=== PATIENT | male | born 1950 | race Caucasian/White ===

== ENCOUNTER 2019-01-30 09:17 | Inpatient (IN) | payer MEDICARE ==
[~2019-01-30] VITALS: Ht 165.1 cm; Wt 82.6 kg
[2019-01-30] VITALS (12 sets, daily range): BP systolic 100–125; BP diastolic 70–80
--- OUTSIDE RECORDS SUMMARY | 2019-01-30 09:20 | XMS REPORT ---
Author Author [facility] Address Unknown Phone Unavailable Care Team Providers Care Home Administrator Name Role Phone Unavailable Unavailable Payers Payer Name Policy Type Policy Number Effective Date Expiration Date Problems This patient has no known problems. Allergies, Adverse Reactions, Alerts Allergy Name Allergy Type Status Severity Reaction(s) Onset Date Inactive Date Treating Clinician Comments cortisone DA Active AL 2018-10-18 00:00:00 latex DA Active AL 2018-10-18 00:00:00 cortisone DA Active AL 2013-03-22 00:00:00 latex DA Active AL 2013-03-22 00:00:00 Medications This patient has no known medications. Encounters Start Date/Time End Date/Time Encounter Type Admission Type Attending Clinicians Care Facility Care Department Encounter ID 2018-12-13 10:48:48 Outpatient [facility] [id number] 2018-12-19 05:22:00 2018-12-19 05:22:00 Outpatient [facility] CAR [id number] 2018-12-01 14:04:00 2018-12-01 14:04:00 Outpatient [facility] CAR [id number] Results Test Description Test Time Test Comments Text Results Atomic Results Result Comments - DUP VEIN UNI/LTD 2018-10-24 10:41:00 Name: CHIQUIS JOLLY [facility] : 1950 Age/S: 68 / M [address] [place] [address] Unit #: [id number] Loc: [place] [address] Phys: Jersey Rogersvicky DO Acct: [id number] Dis Date: Status: ADM IN PHONE #: [phone] Exam Date: 10/24/2018 1013 FAX #: [phone] Reason: LEG PAIN AND NUMBNESS EXAMS: CPT CODE: [id number] DUP VEIN UNI/LTD [id number] EXAM: US LEFT LOWER EXTREMITY VENOUS DOPPLER DATE: 10/24/2018 3:00 PM : 1950; Age: 68 years y/o Male INDICATION: LEG PAIN AND NUMBNESS ADDITIONAL INFORMATION: None. COMPARISON: None. TECHNIQUE: Multiplanar grayscale, color Doppler and spectral Doppler ultrasound of the left lower extremity veins. FINDINGS: Left lower extremity: The common femoral vein, femoral vein, popliteal vein and visualized posterior tibial/calf veins are patent. There is no echogenic debris to suggest deep venous thrombosis. Incidental thick-walled popliteal vein is seen. Rouleaux flow is incidentally noted. IMPRESSION: No deep venous thrombosis (DVT). Incidental thick-walled popliteal vein is seen. Rouleaux flow is incidentally noted. SL: [id number] at 1041 Reported and signed by: Doris Munguia D.O. CC: Pieter Rogers DO; Swapnil Espinal MD Technologist: Gunjan Michelle RDMS(Fanny)(BR) Trnscb Date/Time: 10/24/2018 (1041) [email or web address] Orig Print D/T: S: 10/24/2018 (1046) Probe: PAGE 1 Signed Report BASIC METABOLIC PANEL 2018-10-23 07:31:00 SODIUM (test code=NA) 137 mEq/L 134-147 POTASSIUM (test code=K) 3.9 mEq/L 3.4-5.0 CHLORIDE (test code=CL) 102 mEq/L 100-108 CARBON DIOXIDE (test code=CO2) 27 mEq/L 21-33 ANION GAP (test code=GAP) 12 0-20 GLUCOSE (test code=GLU) 104 mg/dL 70-110 BLOOD UREA NITROGEN (test code=BUN) 16 mg/dL 7-18 GLOMERULAR FILTRATION RATE (test code=GFR) 66.6 80-90 Units of measure=ml/min/1.73 m2 CREATININE (test code=CREAT) 1.1 mg/dL 0.6-1.3 CALCIUM (test code=CA) 8.6 mg/dL 8.0-10.5 [id number] 07:31:00* Test Item Value Reference Range Comments PHOSPHOROUS (test code=PHOS) 3.8 mg/dL 2.5-4.9 [id number] 07:31:00* Test Item Value Reference Range Comments MAGNESIUM (test code=MAG) 2.50 mg/dL 1.8-2.4 CBC W/AUTO [id number] 07:11:00* Test Item Value Reference Range Comments WHITE BLOOD CELL (test code=WBC) 9.35 x10 3/uL 4.5-11.0 RED BLOOD CELL (test code=RBC) 3.95 x10 6/uL 4.00-5.60 HEMOGLOBIN (test code=HGB) 11.6 g/dL 12.5-16.9 HEMATOCRIT (test code=HCT) 34.8 % 37.5-50.7 MEAN CELL VOLUME (test code=MCV) 88.1 fL 81.0-99.0 MEAN CELL HGB (test code=MCH) 29.4 pg 27.0-33.0 MEAN CELL HGB CONCETRATION (test code=MCHC) 33.3 g/dL 33.0-37.0 RED CELL DISTRIBUTION WIDTH CV (test code=RDW) 13.6 % 11.5-14.5 RED CELL DISTRIBUTION WIDTH SD (test code=RDW-SD) 44.0 fL 37.0-54.0 PLATELET COUNT (test code=PLT) 304 x10 3/uL 150-400 MEAN PLATELET VOLUME (test code=MPV) 8.8 fL 7.0-9.0 NEUTROPHIL % (test code=NT%) 66.2 % 56.0-77.0 IMMATURE GRANULOCYTE % (test code=IG%) 1.0 % 0.0-2.0 LYMPHOCYTE % (test code=LY%) 17.6 % 14.0-32.0 MONOCYTE % (test code=MO%) 9.7 % 4.8-9.0 EOSINOPHIL % (test code=EO%) 5.1 % 0.3-3.7 BASOPHIL % (test code=BA%) 0.4 % 0.0-2.0 NUCLEATED RBC % (test code=NRBC%) 0.0 % 0-0 NEUTROPHIL # (test code=NT#) 6.18 x10 3/uL 2.0-7.6 IMMATURE GRANULOCYTE # (test code=IG#) 0.09 x10 3/uL 0.00-0.03 LYMPHOCYTE # (test code=LY#) 1.65 x10 3/uL 1.0-3.8 MONOCYTE # (test code=MO#) 0.91 x10 3/uL 0.1-0.8 EOSINOPHIL # (test code=EO#) 0.48 x10 3/uL 0.0-0.2 BASOPHIL # (test code=BA#) 0.04 x10 3/uL 0.0-0.2 NUCLEATED RBC # (test code=NRBC#) 0.00 x10 3/uL 0.0-0.1 MANUAL DIFF REQUIRED (test code=MDIFF) NO BASIC METABOLIC [id number] 10:56:00* Test Item Value Reference Range Comments SODIUM (test code=NA) 137 mEq/L 134-147 POTASSIUM (test code=K) 4.2 mEq/L 3.4-5.0 CHLORIDE (test code=CL) 103 mEq/L 100-108 CARBON DIOXIDE (test code=CO2) 29 mEq/L 21-33 ANION GAP (test code=GAP) 9 0-20 GLUCOSE (test code=GLU) 113 mg/dL 70-110 BLOOD UREA NITROGEN (test code=BUN) 14 mg/dL 7-18 GLOMERULAR FILTRATION RATE (test code=GFR) 60.2 80-90 Units of measure=ml/min/1.73 m2 CREATININE (test code=CREAT) 1.2 mg/dL 0.6-1.3 CALCIUM (test code=CA) 8.7 mg/dL 8.0-10.5 BASIC METABOLIC [id number] 04:30:00* Test Item Value Reference Range Comments SODIUM (test code=NA) 135 mEq/L 134-147 POTASSIUM (test code=K) 3.9 mEq/L 3.4-5.0 CHLORIDE (test code=CL) 100 mEq/L 100-108 CARBON DIOXIDE (test code=CO2) 31 mEq/L 21-33 ANION GAP (test code=GAP) 8 0-20 GLUCOSE (test code=GLU) 132 mg/dL 70-110 BLOOD UREA NITROGEN (test code=BUN) 15 mg/dL 7-18 GLOMERULAR FILTRATION RATE (test code=GFR) 50.4 80-90 Units of measure=ml/min/1.73 m2 CREATININE (test code=CREAT) 1.4 mg/dL 0.6-1.3 CALCIUM (test code=CA) 8.2 mg/dL 8.0-10.5 CBC W/AUTO [id number] 04:13:00* Test Item Value Reference Range Comments WHITE BLOOD CELL (test code=WBC) 11.23 x10 3/uL 4.5-11.0 RED BLOOD CELL (test code=RBC) 4.00 x10 6/uL 4.00-5.60 HEMOGLOBIN (test code=HGB) 11.8 g/dL 12.5-16.9 HEMATOCRIT (test code=HCT) 35.1 % 37.5-50.7 MEAN CELL VOLUME (test code=MCV) 87.8 fL 81.0-99.0 MEAN CELL HGB (test code=MCH) 29.5 pg 27.0-33.0 MEAN CELL HGB CONCETRATION (test code=MCHC) 33.6 g/dL 33.0-37.0 RED CELL DISTRIBUTION WIDTH CV (test code=RDW) 13.9 % 11.5-14.5 RED CELL DISTRIBUTION WIDTH SD (test code=RDW-SD) 44.8 fL 37.0-54.0 PLATELET COUNT (test code=PLT) 194 x10 3/uL 150-400 MEAN PLATELET VOLUME (test code=MPV) 8.6 fL 7.0-9.0 NEUTROPHIL % (test code=NT%) 71.6 % 56.0-77.0 IMMATURE GRANULOCYTE % (test code=IG%) 0.5 % 0.0-2.0 LYMPHOCYTE % (test code=LY%) 15.9 % 14.0-32.0 MONOCYTE % (test code=MO%) 9.6 % 4.8-9.0 EOSINOPHIL % (test code=EO%) 2.0 % 0.3-3.7 BASOPHIL % (test code=BA%) 0.4 % 0.0-2.0 NUCLEATED RBC % (test code=NRBC%) 0.0 % 0-0 NEUTROPHIL # (test code=NT#) 8.05 x10 3/uL 2.0-7.6 IMMATURE GRANULOCYTE # (test code=IG#) 0.06 x10 3/uL 0.00-0.03 LYMPHOCYTE # (test code=LY#) 1.78 x10 3/uL 1.0-3.8 MONOCYTE # (test code=MO#) 1.08 x10 3/uL 0.1-0.8 EOSINOPHIL # (test code=EO#) 0.22 x10 3/uL 0.0-0.2 BASOPHIL # (test code=BA#) 0.04 x10 3/uL 0.0-0.2 NUCLEATED RBC # (test code=NRBC#) 0.00 x10 3/uL 0.0-0.1 MANUAL DIFF REQUIRED (test code=MDIFF) NO [id number] 01:29:00* Test Item Value Reference Range Comments FIBRINOGEN (test code=FIB) 452 MG/DL 160-450 Excess administration of anticoagulants and/or FibrinDegradation Products may affect Fibrinogen value. COMMENTS: 2 hrs Post Procedure, then q6 hrs X 48 hrs. Call if less gary n 100.[id number] 21:01:00* Test Item Value Reference Range Comments FIBRINOGEN (test code=FIB) 401 MG/DL 160-450 Excess administration of anticoagulants and/or FibrinDegradation Products may affect Fibrinogen value. COMMENTS: 2 hrs Post Procedure, then q6 hrs X 48 hrs. Call if less gary n 100.BASIC METABOLIC [id number] 05:54:00* Test Item Value Reference Range Comments SODIUM (test code=NA) 136 mEq/L 134-147 POTASSIUM (test code=K) 4.1 mEq/L 3.4-5.0 CHLORIDE (test code=CL) 101 mEq/L 100-108 CARBON DIOXIDE (test code=CO2) 30 mEq/L 21-33 ANION GAP (test code=GAP) 9 0-20 GLUCOSE (test code=GLU) 108 mg/dL 70-110 BLOOD UREA NITROGEN (test code=BUN) 10 mg/dL 7-18 GLOMERULAR FILTRATION RATE (test code=GFR) 66.6 80-90 Units of measure=ml/min/1.73 m2 CREATININE (test code=CREAT) 1.1 mg/dL 0.6-1.3 CALCIUM (test code=CA) 8.5 mg/dL 8.0-10.5 CBC W/AUTO [id number] 05:46:00* Test Item Value Reference Range Comments WHITE BLOOD CELL (test code=WBC) 9.72 x10 3/uL 4.5-11.0 RED BLOOD CELL (test code=RBC) 4.43 x10 6/uL 4.00-5.60 HEMOGLOBIN (test code=HGB) 13.1 g/dL 12.5-16.9 HEMATOCRIT (test code=HCT) 38.8 % 37.5-50.7 MEAN CELL VOLUME (test code=MCV) 87.6 fL 81.0-99.0 MEAN CELL HGB (test code=MCH) 29.6 pg 27.0-33.0 MEAN CELL HGB CONCETRATION (test code=MCHC) 33.8 g/dL 33.0-37.0 RED CELL DISTRIBUTION WIDTH CV (test code=RDW) 13.6 % 11.5-14.5 RED CELL DISTRIBUTION WIDTH SD (test code=RDW-SD) 44.1 fL 37.0-54.0 PLATELET COUNT (test code=PLT) 205 x10 3/uL 150-400 MEAN PLATELET VOLUME (test code=MPV) 8.7 fL 7.0-9.0 NEUTROPHIL % (test code=NT%) 66.9 % 56.0-77.0 IMMATURE GRANULOCYTE % (test code=IG%) 0.6 % 0.0-2.0 LYMPHOCYTE % (test code=LY%) 21.3 % 14.0-32.0 MONOCYTE % (test code=MO%) 8.1 % 4.8-9.0 EOSINOPHIL % (test code=EO%) 2.8 % 0.3-3.7 BASOPHIL % (test code=BA%) 0.3 % 0.0-2.0 NUCLEATED RBC % (test code=NRBC%) 0.0 % 0-0 NEUTROPHIL # (test code=NT#) 6.50 x10 3/uL 2.0-7.6 IMMATURE GRANULOCYTE # (test code=IG#) 0.06 x10 3/uL 0.00-0.03 LYMPHOCYTE # (test code=LY#) 2.07 x10 3/uL 1.0-3.8 MONOCYTE # (test code=MO#) 0.79 x10 3/uL 0.1-0.8 EOSINOPHIL # (test code=EO#) 0.27 x10 3/uL 0.0-0.2 BASOPHIL # (test code=BA#) 0.03 x10 3/uL 0.0-0.2 NUCLEATED RBC # (test code=NRBC#) 0.00 x10 3/uL 0.0-0.1 MANUAL DIFF REQUIRED (test code=MDIFF) NO [id number] 05:46:00* Test Item Value Reference Range Comments FIBRINOGEN (test code=FIB) 449 MG/DL 160-450 Excess administration of anticoagulants and/or FibrinDegradation Products may affect Fibrinogen value. COMMENTS: 2 hrs Post Procedure, then q6 hrs X 48 hrs. Call if less gary n 100.[id number] 00:57:00* Test Item Value Reference Range Comments FIBRINOGEN (test code=FIB) 440 MG/DL 160-450 Excess administration of anticoagulants and/or FibrinDegradation Products may affect Fibrinogen value. COMMENTS: 2 hrs Post Procedure, then q6 hrs X 48 hrs. Call if less gary n 100.THROMBOPLASTIN TIME [id number] 20:30:00* Test Item Value Reference Range Comments THROMBOPLASTIN TIME PARTIAL (test code=PTT) 39.8 Seconds 25.0-39.5 Therapeutic Range: 61.8-83.8 Sec Effective 08/09/2013 [id number] 20:30:00* Test Item Value Reference Range Comments FIBRINOGEN (test code=FIB) 423 MG/DL 160-450 Excess administration of anticoagulants and/or FibrinDegradation Products may affect Fibrinogen value. [id number] 12:46:00* Test Item Value Reference Range Comments FIBRINOGEN (test code=FIB) 338 MG/DL 160-450 Excess administration of anticoagulants and/or FibrinDegradation Products may affect Fibrinogen value. COMMENTS: 2 hrs Post Procedure, then q6 hrs X 48 hrs. Call if less gary n 100.PROTHROMBIN [id number] 05:34:00* Test Item Value Reference Range Comments PROTHROMBIN TIME PATIENT (test code=PTP) 12.3 SECONDS 9.3-12.9 INTERNATIONAL NORMAL RATIO (test code=INR) 1.1 0.8-1.2 TARGET INR BY INDICATION Indication INR1. Prophylaxis of venous thrombosis 2.0 - 3.0 (orthopedic surgery), Prophylaxis of venous thrombosis (other than high-risk surgery), Treatment of Deep Vein Thrombosis/Pulmonary Embolism, Prevention of systemic embolism - Tissue heart valves, Acute Myocardial Infarction (to prevent systemic embolism), Valvular heart disease, Atrial Fibrillation, Bileaflet mechanical valve in aortic position.2. Mechanical prosthetic valves (high risk), 2.5 - 3.5 Presence of Lupus Anticoagulant or Antiphospholipid Antibodies, Prevention of systemic embolism - Acute Myocardial Infarction (to prevent recurrent infarct). THROMBOPLASTIN TIME [id number] 05:34:00* Test Item Value Reference Range Comments THROMBOPLASTIN TIME PARTIAL (test code=PTT) 39.5 Seconds 25.0-39.5 Therapeutic Range: 61.8-83.8 Sec Effective 08/09/2013 BASIC METABOLIC [id number] 05:26:00* Test Item Value Reference Range Comments SODIUM (test code=NA) 139 mEq/L 134-147 POTASSIUM (test code=K) 3.9 mEq/L 3.4-5.0 CHLORIDE (test code=CL) 106 mEq/L 100-108 CARBON DIOXIDE (test code=CO2) 29 mEq/L 21-33 ANION GAP (test code=GAP) 8 0-20 GLUCOSE (test code=GLU) 121 mg/dL 70-110 BLOOD UREA NITROGEN (test code=BUN) 14 mg/dL 7-18 GLOMERULAR FILTRATION RATE (test code=GFR) 66.6 80-90 Units of measure=ml/min/1.73 m2 CREATININE (test code=CREAT) 1.1 mg/dL 0.6-1.3 CALCIUM (test code=CA) 8.3 mg/dL 8.0-10.5 CBC W/AUTO [id number] 05:10:00* Test Item Value Reference Range Comments WHITE BLOOD CELL (test code=WBC) 13.73 x10 3/uL 4.5-11.0 RED BLOOD CELL (test code=RBC) 4.59 x10 6/uL 4.00-5.60 HEMOGLOBIN (test code=HGB) 13.4 g/dL 12.5-16.9 HEMATOCRIT (test code=HCT) 39.0 % 37.5-50.7 MEAN CELL VOLUME (test code=MCV) 85.0 fL 81.0-99.0 MEAN CELL HGB (test code=MCH) 29.2 pg 27.0-33.0 MEAN CELL HGB CONCETRATION (test code=MCHC) 34.4 g/dL 33.0-37.0 RED CELL DISTRIBUTION WIDTH CV (test code=RDW) 13.5 % 11.5-14.5 RED CELL DISTRIBUTION WIDTH SD (test code=RDW-SD) 41.8 fL 37.0-54.0 PLATELET COUNT (test code=PLT) 228 x10 3/uL 150-400 MEAN PLATELET VOLUME (test code=MPV) 8.7 fL 7.0-9.0 NEUTROPHIL % (test code=NT%) 77.4 % 56.0-77.0 IMMATURE GRANULOCYTE % (test code=IG%) 0.7 % 0.0-2.0 LYMPHOCYTE % (test code=LY%) 13.4 % 14.0-32.0 MONOCYTE % (test code=MO%) 6.3 % 4.8-9.0 EOSINOPHIL % (test code=EO%) 1.9 % 0.3-3.7 BASOPHIL % (test code=BA%) 0.3 % 0.0-2.0 NUCLEATED RBC % (test code=NRBC%) 0.0 % 0-0 NEUTROPHIL # (test code=NT#) 10.62 x10 3/uL 2.0-7.6 IMMATURE GRANULOCYTE # (test code=IG#) 0.10 x10 3/uL 0.00-0.03 LYMPHOCYTE # (test code=LY#) 1.84 x10 3/uL 1.0-3.8 MONOCYTE # (test code=MO#) 0.87 x10 3/uL 0.1-0.8 EOSINOPHIL # (test code=EO#) 0.26 x10 3/uL 0.0-0.2 BASOPHIL # (test code=BA#) 0.04 x10 3/uL 0.0-0.2 NUCLEATED RBC # (test code=NRBC#) 0.00 x10 3/uL 0.0-0.1 MANUAL DIFF REQUIRED (test code=MDIFF) NO [id number] 02:09:00* Test Item Value Reference Range Comments FIBRINOGEN (test code=FIB) 343 MG/DL 160-450 Excess administration of anticoagulants and/or FibrinDegradation Products may affect Fibrinogen value. COMMENTS: 2 hrs Post Procedure, then q6 hrs X 48 hrs. Call if less gary n 100.COMPREHENSIVE METABOLIC [id number] 21:17:00* Test Item Value Reference Range Comments SODIUM (test code=NA) 137 mEq/L 134-147 POTASSIUM (test code=K) 3.7 mEq/L 3.4-5.0 CHLORIDE (test code=CL) 103 mEq/L 100-108 CARBON DIOXIDE (test code=CO2) 30 mEq/L 21-33 ANION GAP (test code=GAP) 8 0-20 GLUCOSE (test code=GLU) 98 mg/dL 70-110 BLOOD UREA NITROGEN (test code=BUN) 14 mg/dL 7-18 GLOMERULAR FILTRATION RATE (test code=GFR) 60.2 80-90 Units of measure=ml/min/1.73 m2 CREATININE (test code=CREAT) 1.2 mg/dL 0.6-1.3 TOTAL PROTEIN (test code=PROT) 7.9 g/dL 6.4-8.2 ALBUMIN (test code=ALB) 4.30 g/dL 3.4-5.0 CALCIUM (test code=CA) 9.4 mg/dL 8.0-10.5 BILIRUBIN TOTAL (test code=BILT) 0.40 mg/dL 0.0-1.0 SGOT/AST (test code=AST) 22 IUnit/L 15-37 SGPT/ALT (test code=ALT) 34 IUnit/L 15-65 ALKALINE PHOSPHATASE TOTAL (test code=ALKP) 102 IUnit/L 20-125 COMPREHENSIVE METABOLIC [id number] 21:15:00* Test Item Value Reference Range Comments SODIUM (test code=NA) 137 mEq/L 134-147 POTASSIUM (test code=K) 3.7 mEq/L 3.4-5.0 CHLORIDE (test code=CL) 103 mEq/L 100-108 CARBON DIOXIDE (test code=CO2) 30 mEq/L 21-33 ANION GAP (test code=GAP) 8 0-20 GLUCOSE (test code=GLU) 98 mg/dL 70-110 BLOOD UREA NITROGEN (test code=BUN) 14 mg/dL 7-18 GLOMERULAR FILTRATION RATE (test code=GFR) 60.2 80-90 Units of measure=ml/min/1.73 m2 CREATININE (test code=CREAT) 1.2 mg/dL 0.6-1.3 TOTAL PROTEIN (test code=PROT) g/dL 6.4-8.2 ALBUMIN (test code=ALB) 4.30 g/dL 3.4-5.0 CALCIUM (test code=CA) 9.4 mg/dL 8.0-10.5 BILIRUBIN TOTAL (test code=BILT) mg/dL 0.0-1.0 SGOT/AST (test code=AST) 22 IUnit/L 15-37 SGPT/ALT (test code=ALT) 34 IUnit/L 15-65 ALKALINE PHOSPHATASE TOTAL (test code=ALKP) IUnit/L 20-125 PROTHROMBIN [id number] 21:13:00* Test Item Value Reference Range Comments PROTHROMBIN TIME PATIENT (test code=PTP) 11.7 SECONDS 9.3-12.9 INTERNATIONAL NORMAL RATIO (test code=INR) 1.0 0.8-1.2 TARGET INR BY INDICATION Indication INR1. Prophylaxis of venous thrombosis 2.0 - 3.0 (orthopedic surgery), Prophylaxis of venous thrombosis (other than high-risk surgery), Treatment of Deep Vein Thrombosis/Pulmonary Embolism, Prevention of systemic embolism - Tissue heart valves, Acute Myocardial Infarction (to prevent systemic embolism), Valvular heart disease, Atrial Fibrillation, Bileaflet mechanical valve in aortic position.2. Mechanical prosthetic valves (high risk), 2.5 - 3.5 Presence of Lupus Anticoagulant or Antiphospholipid Antibodies, Prevention of systemic embolism - Acute Myocardial Infarction (to prevent recurrent infarct). THROMBOPLASTIN TIME [id number] 21:13:00* Test Item Value Reference Range Comments THROMBOPLASTIN TIME PARTIAL (test code=PTT) 29.0 Seconds 25.0-39.5 Therapeutic Range: 61.8-83.8 Sec Effective 08/09/2013 CBC W/AUTO [id number] 21:01:00* Test Item Value Reference Range Comments WHITE BLOOD CELL (test code=WBC) 11.75 x10 3/uL 4.5-11.0 RED BLOOD CELL (test code=RBC) 5.14 x10 6/uL 4.00-5.60 HEMOGLOBIN (test code=HGB) 15.0 g/dL 12.5-16.9 HEMATOCRIT (test code=HCT) 44.0 % 37.5-50.7 MEAN CELL VOLUME (test code=MCV) 85.6 fL 81.0-99.0 MEAN CELL HGB (test code=MCH) 29.2 pg 27.0-33.0 MEAN CELL HGB CONCETRATION (test code=MCHC) 34.1 g/dL 33.0-37.0 RED CELL DISTRIBUTION WIDTH CV (test code=RDW) 13.4 % 11.5-14.5 RED CELL DISTRIBUTION WIDTH SD (test code=RDW-SD) 42.4 fL 37.0-54.0 PLATELET COUNT (test code=PLT) 284 x10 3/uL 150-400 MEAN PLATELET VOLUME (test code=MPV) 8.4 fL 7.0-9.0 NEUTROPHIL % (test code=NT%) 62.6 % 56.0-77.0 IMMATURE GRANULOCYTE % (test code=IG%) 0.9 % 0.0-2.0 LYMPHOCYTE % (test code=LY%) 26.4 % 14.0-32.0 MONOCYTE % (test code=MO%) 6.4 % 4.8-9.0 EOSINOPHIL % (test code=EO%) 3.4 % 0.3-3.7 BASOPHIL % (test code=BA%) 0.3 % 0.0-2.0 NUCLEATED RBC % (test code=NRBC%) 0.0 % 0-0 NEUTROPHIL # (test code=NT#) 7.35 x10 3/uL 2.0-7.6 IMMATURE GRANULOCYTE # (test code=IG#) 0.11 x10 3/uL 0.00-0.03 LYMPHOCYTE # (test code=LY#) 3.10 x10 3/uL 1.0-3.8 MONOCYTE # (test code=MO#) 0.75 x10 3/uL 0.1-0.8 EOSINOPHIL # (test code=EO#) 0.40 x10 3/uL 0.0-0.2 BASOPHIL # (test code=BA#) 0.04 x10 3/uL 0.0-0.2 NUCLEATED RBC # (test code=NRBC#) 0.00 x10 3/uL 0.0-0.1 MANUAL DIFF REQUIRED (test code=MDIFF) NO - DOMITILA ESQUIVEL [id number] 19:00:00 Name: CHIQUIS JOLLY [facility] : 1950 Age/S: 68 / M [address] [place] [address] Unit #: [id number] Loc: [place] [address] Phys: Swapnil Espinal MD Acct: [id number] Dis Date: Status: REG CLI PHONE #: [phone] Exam Date: 10/17/2018 1824 FAX #: [phone] Reason: LLE PAIN AND EDEMA EXAMS: CPT CODE: [id number] DUP VEIN UNI/LTD [id number] EXAM: US LEFT LOWER EXTREMITY VENOUS DOPPLER DATE: 10/17/2018 5:02 PM : 1950; Age: 68 years y/o Male INDICATION: LLE PAIN AND EDEMA ADDITIONAL INFORMATION: None. COMPARISON: None. TECHNIQUE: Multiplanar grayscale, color Doppler and spectral Doppler ultrasound of the left lower extremity veins. FINDINGS: Left lower extremity: The common femoral vein, femoral vein, popliteal vein and visualized posterior tibial/calf veins are patent. There is no echogenic debris to suggest deep venous thrombosis. 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 This aneurysm is primarily clotted. Echogenic heterogeneous clot is noted involving the mid and distal popliteal artery with no flow. Diminished flow is noted in the distal left posterior tibial artery. No flow is noted in the proximal posterior tibial artery. Diminished flow is noted in the left dorsalis pedis artery. IMPRESSION: No deep venous thrombosis (DVT). 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 This aneurysm is primarily clotted. Echogenic heterogeneous clot is noted involving the mid and distal popliteal artery with no flow. No flow is noted in the proximal posterior tibial artery. Diminished flow is noted in the distal left posterior tibial artery. Diminished flow is noted in the left dorsalis pedis artery. SL: [id number] Significant findings were communicated to Lashon Oden PH-C on 10/17/2018 6:47 PM. PAGE 1 Signed Report (CONTINUED) Name: CHIQUIS JOLLY [facility] [place] : 1950 Age/S: 68 / M [address] [place] [address] Bl Unit #: [id number] Loc: [facility] [address] Phys: Swapnil Espinal MD Acct: [id number] Dis Date: Status: REG CLI PHONE #: [phone] Exam Date: 10/17/2018 1824 FAX #: [phone] Reason: LLE PAIN AND EDEMA EXAMS: CPT CODE: [id number] DUP VEIN UNI/LTD [id number] <Continued> FOR INTERNAL CODING PURPOSES ONLY RESULT CODE: CVR at 1900 Reported and signed by: Doris Munguia D.O. CC: Swapnil Espinal MD Technologist: Nicki Cevallos RDMS(AB)(OB); ... Trnscb Date/Time: 10/17/2018 (1899) [id number] Orig Print D/T: S: 10/17/2018 (1902) Probe: PAGE 2 Signed Report
[2019-01-30] MEDS ORDERED: HEPARIN 25,000 UNIT 1,300 UNIT in DEXTROSE 5% 250ML 250 ML IV SCH (10:00)
[2019-01-30] MEDS ORDERED: HEPARIN SOD (PORCINE) 5,000 UNIT/ML VIAL IV ONE (10:00)
[2019-01-30] MEDS ORDERED: MORPHINE SULFATE 2 MG/ML SYR 1ML IV PRN (10:15)
[2019-01-30] MEDS ORDERED: ONDANSETRON HCL INJ 2MG/ML 2ML 2 MG/ML VIAL IV PRN ×2 (10:15→13:45)
[2019-01-30] MEDS ORDERED: MORPHINE SULFATE INJ 4 MG/ML INJ 1ML IV PRN (10:30)
--- NOTE | 2019-01-30 10:35 | Diagnostic Imaging Report ---
EXAMINATION: CHEST SINGLE (PORTABLE) INDICATION: Ischemia. COMPARISON: None FINDINGS: TUBES and LINES: EKG leads overlie the chest. LUNGS: The lung volumes are normal. No focal consolidation or pulmonary edema. PLEURA: No pleural effusion or pneumothorax. HEART AND MEDIASTINUM: The cardiomediastinal silhouette is normal in size and contour. BONES AND SOFT TISSUES: No acute fracture or dislocation. UPPER ABDOMEN: No free air under the diaphragm. IMPRESSION: No focal pneumonia or pulmonary edema. Signed by: Fredi Cerna MD on 01/30/2019 10:31 AM
[2019-01-30 10:59] LABS: BASOPHILS % 0.3 % (0.0-1.0); EOSINOPHILS # (AUTO) 0.3 (0.0-0.4); EOSINOPHILS % 3.2 % (0.0-6.0); HEMATOCRIT 41.1 % (38.2-49.6); HEMOGLOBIN 13.8 g/dL (14.0-18.0); LYMPHOCYTES % 22.1 % (18.0-39.1); MEAN CORPUSCULAR HEMOGLOBIN 28.5 pg (28-32); MEAN CORPUSCULAR HGB CONC 33.6 g/dL (31-35); MEAN CORPUSCULAR VOLUME 84.7 fL (81-99); MONOCYTES # (AUTO) 0.6 (0.2-0.8); MONOCYTES % 6.7 % (4.4-11.3); NEUTROPHILS % 66.9 % (38.7-80.0); PLATELET COUNT 253 x10e3/uL (140-360); RED BLOOD COUNT 4.85 x10e6/uL (4.3-5.7); RED CELL DISTRIBUTION WIDTH 14.8 % (11.7-14.4)
[2019-01-30 11:03] LABS: BILIRUBIN,URINE NEGATIVE (NEGATIVE); CLARITY,URINE CLEAR (CLEAR); COLOR,URINE YELLOW (YELLOW); KETONES,URINE NEGATIVE (NEGATIVE); LEUKOCYTE ESTERASE ,URINE NEGATIVE (NEGATIVE); NITRITE,URINE NEGATIVE (NEGATIVE); PROTEIN,URINE DIPSTICK NEGATIVE (NEGATIVE); URINE UROBILINOGEN 0.2 mg/dL (0.2 - 1)
[2019-01-30 11:19] LABS: INR 0.92; PARTIAL THROMBOPLASTIN TIME 27.3 seconds (23.8-35.5); PROTHROMBIN TIME 12.9 seconds (11.9-14.5)
[2019-01-30] MEDS ORDERED: HEPARIN 25,000 UNIT DRIP IV ONE (11:25)
[2019-01-30 11:27] LABS: ALANINE AMINOTRANSFERASE 41 IU/L (0-55); ALBUMIN 4.1 g/dL (3.5-5.0); ALBUMIN/GLOBULIN RATIO 1.2 (0.8-2.0); ALKALINE PHOSPHATASE 83 IU/L (40-150); ANION GAP 14.2 mmol/L (8-16); BLOOD UREA NITROGEN 11 mg/dL (7-26); BUN/CREATININE RATIO 10 (6-25); CALCIUM 10.1 mg/dL (8.4-10.2); CARBON DIOXIDE 27 mmol/L (22-29); CHLORIDE 104 mmol/L (98-107); CREATINE KINASE 2350 IU/L (30-200); CREATININE, SERUM 1.08 mg/dL (0.72-1.25); EST GLOMERULAR FILTRATION RATE > 60 ML/MIN (60-); GLUCOSE 88 mg/dL (74-118); MAGNESIUM 2.5 MG/DL (1.3-2.1); POTASSIUM 4.2 mmol/L (3.5-5.1); SODIUM 141 mmol/L (136-145)
[2019-01-30] MEDS: FAMOTIDINE 20 MG/2 ML VIAL IV SCH ×2 (11:58→21:22)
--- NOTE | 2019-01-30 12:05 | NUR ---
BLANK CONSENT PRINTED AND PLACED ON CHART
[2019-01-30 12:11] LABS: BACTERIA,URINE FEW /HPF; EPITHELIAL CELLS,URINE FEW /LPF; RBC,URINE 0-5 /HPF (0-5); WBC,URINE (MAN) 0-5 /HPF (0-5)
--- NOTE | 2019-01-30 12:17 | NUR ---
FAST [employer] SERVICES MANAGER BEDSIDE TO SPEAK TO PATIENT
[2019-01-30] MEDS ORDERED: LIDOCAINE HCL 2% LOCAL 20 ML VIAL ONE (12:29)
[2019-01-30] MEDS ORDERED: IOPAMIDOL 300MG/ML 100 ML INFUS..BTL IV ONE ×2 (12:29→13:10)
[2019-01-30] MEDS ORDERED: HEPARIN SOD/SOD CHLORIDE 2,000 ML ONE (12:29)
--- NOTE | 2019-01-30 12:42 | NUR ---
PATIENT TO WIRE BRUSH OPERATOR AT THIS TIME
[2019-01-30] MEDS ORDERED: SODIUM CHLORIDE 0.9% 1000ML 1,000 ML ONE (12:46)
[2019-01-30] MEDS ORDERED: MIDAZOLAM HCL 2 MG/2 ML VIAL ONE ×2 (12:46→13:10)
[2019-01-30] MEDS ORDERED: FENTANYL CITRATE/PF 100MCG/2 ML INJ ONE (12:46)
[2019-01-30] MEDS ORDERED: ALTEPLASE RECOMBINANT 2 MG/2 ML VIAL ONE ×2 (12:57→13:05)
[2019-01-30] MEDS ORDERED: HEPARIN 25,000U/0.45% NS 250ML 250 ML IV ONE (12:58)
[2019-01-30] MEDS ORDERED: HYDROMORPHONE 1MG/1ML INJ IV PRN (13:45)
[2019-01-30] MEDS ORDERED: HYDROCODONE/APAP 5MG-325MG TAB PO PRN (13:45)
[2019-01-30] MEDS: HEPARIN 25,000 UNIT 900 UNIT in DEXTROSE 5% 250ML 250 ML IV SCH (13:45)
[2019-01-30] MEDS ORDERED: ALTEPLASE 50 MG/VIAL (29 MILLION IU) IV ONE (13:45)
[2019-01-30] MEDS ORDERED: HYDRALAZINE HCL 20 MG/ML VIAL IV PRN (13:45)
--- NOTE | 2019-01-30 14:11 | Operative Report ---
DATE OF PROCEDURE: 01/30/2019 SURGEON: Han Amezcua MD INDICATION: Acute limb ischemia with critical limb ischemia of the left lower extremity peripheral arterial disease. PROCEDURES PERFORMED: 1. Abdominal aortogram. 2. Left lower extremity unilateral angiogram. 3. Selective third order catheter placement from right femoral artery to the left superficial femoral artery. 4. Primary thrombectomy of the left superficial and popliteal arteries. 5. Placement of lysis catheter. COMPLICATIONS: None. RECOMMENDATIONS: Assessment of reperfusion in the next 24 to 48 hours. DESCRIPTION OF PROCEDURE: Access was obtained of the right femoral artery. Abdominal aortogram demonstrated mild aneurysmal dilatation of the iliacs bilaterally with minimal disease. Left femoral artery appeared to be occluded. The catheter was then advanced from the right femoral artery to the left superficial femoral artery. Complete occlusion of the left femoral as well as the previously placed stent was noted. The lesion was attempted to be crossed using a Glidewire, unable to cross distal end of stent. Aspiration thrombectomy of the popliteal, femoral, and common femoral arteries was performed and large amounts of thrombus was removed. Lysis catheter was introduced. TPA bolus 6 mg administered followed by 1 mg an hour. Sheath secured in place. The patient transferred to ICU in stable condition. Han Amezcua MD KSB/MODL /[id number]
--- NOTE | 2019-01-30 16:04 | NUR ---
left message with answering service for Dr Collado regarding new consult
[2019-01-30] MEDS: SODIUM CHLORIDE 0.9% 1000ML 1,000 ML IV SCH ×2 (17:03→23:37)
[2019-01-30] MEDS: MORPHINE SULFATE INJ 4 MG/ML INJ 1ML IV PRN (17:53)
[2019-01-30 18:24] LABS: BASOPHILS # (AUTO) 0.1 (0.0-0.1); BASOPHILS % 0.6 % (0.0-1.0); EOSINOPHILS # (AUTO) 0.3 (0.0-0.4); EOSINOPHILS % 2.9 % (0.0-6.0); HEMATOCRIT 42.9 % (38.2-49.6); HEMOGLOBIN 13.8 g/dL (14.0-18.0); LYMPHOCYTES # (AUTO) 2.4 (1.0-3.2); LYMPHOCYTES % 25.7 % (18.0-39.1); MEAN CORPUSCULAR HEMOGLOBIN 28.4 pg (28-32); MEAN CORPUSCULAR HGB CONC 32.2 g/dL (31-35); MEAN CORPUSCULAR VOLUME 88.3 fL (81-99); MONOCYTES # (AUTO) 0.9 (0.2-0.8); MONOCYTES % 9.1 % (4.4-11.3); NEUTROPHILS # (AUTO) 5.7 (2.1-6.9); NEUTROPHILS % 61.2 % (38.7-80.0); PLATELET COUNT 200 x10e3/uL (140-360); RED BLOOD COUNT 4.86 x10e6/uL (4.3-5.7); RED CELL DISTRIBUTION WIDTH 14.9 % (11.7-14.4)
[2019-01-30] MEDS: HYDROCODONE/APAP 5MG-325MG TAB PO PRN (18:42)
--- NOTE | 2019-01-30 18:57 | Consultation ---
DATE OF CONSULTATION: 01/30/2019 ICU Consultation REASON FOR CONSULT: ICU management. HISTORY OF PRESENT ILLNESS: Mr. Odell is a 68-year-old male, who was admitted by Dr. Amezcua for ischemic foot. The patient underwent a catheter in the femoral artery and has been started on tPA bolus. The patient also had an aspiration thrombectomy of the popliteal, femoral, and common femoral arteries. Large amount of thrombus was removed. He does not have any history of smoking. REVIEW OF SYSTEMS: GENERAL: Denies any fever or chills. HEAD: Denies any head trauma. ENT: Denies any earache. CVS: Denies any chest pain. RESPIRATORY: Denies any shortness of breath. GI: Denies any nausea or vomiting. The rest of the review of systems are negative except as in HPI. PAST MEDICAL HISTORY: Hypertension. PAST SURGICAL HISTORY: None. FAMILY AND SOCIAL HISTORY: He does not smoke and does not drink. PHYSICAL EXAMINATION: VITAL SIGNS: Temperature 98.3, pulse of 67, blood pressure 160/72, respiratory rate of 18, and O2 saturation 100% on room air. HEENT: Head is atraumatic and normocephalic. NECK: Supple. CHEST: Clear to auscultation bilaterally. No wheezing. HEART: S1 and S2 audible. ABDOMEN: Soft. EXTREMITIES: No pedal edema. NEUROLOGIC: Awake and alert. No focal neurologic deficits. LABORATORY DATA: Reviewed. CK-MB 30.20. Chemistries normal. White count is 9000 and hemoglobin 13.8. ASSESSMENT/PLAN: Mr. Odell is a 68-year-old male. He is admitted for acute limb ischemia by Dr. Han Amezcua. Currently, the patient is in ICU, stable. Continue the tPA, which has been started by Cardiology team. Oxygen as needed. Tylenol for pain control. MD MEGHANN Rivera/VALENTINE /[id number]
[2019-01-30] MEDS: ALTEPLASE RECOMBINANT 8 MG in DEXTROSE 5% 250ML 250 ML IV PRN (20:28)
[2019-01-30 21:20] LABS: INR 1.12; PROTHROMBIN TIME 14.9 seconds (11.9-14.5)
[2019-01-30] MEDS ORDERED: FAMOTIDINE 20 MG/2 ML VIAL IV ONE (21:25)
[2019-01-30 21:28] LABS: CREATINE KINASE 1336 IU/L (30-200)
--- NOTE | 2019-01-30 22:05 | NUR ---
PTT reading "too high" for lab to report, call placed for Dr. Ronit Munguia ([employer] professional for Dr Amezcua) states to hold heparin per protocol. Heparin placed on hold for 1 hour and will restart at 1100 u/hr per protocol
[2019-01-30] MEDS: ZOLPIDEM TARTRATE 5 MG TAB PO PRN (22:06)
--- NOTE | 2019-01-30 23:00 | NUR ---
Heparin restarted at 1100 u/hr
[2019-01-31] VITALS (25 sets, daily range): BP systolic 95–132; BP diastolic 54–81
[2019-01-31 05:11] LABS: BASOPHILS % 0.3 % (0.0-1.0); EOSINOPHILS # (AUTO) 0.3 (0.0-0.4); HEMATOCRIT 35.5 % (38.2-49.6); HEMOGLOBIN 11.7 g/dL (14.0-18.0); LYMPHOCYTES # (AUTO) 1.8 (1.0-3.2); LYMPHOCYTES % 23.3 % (18.0-39.1); MEAN CORPUSCULAR HEMOGLOBIN 28.1 pg (28-32); MEAN CORPUSCULAR VOLUME 85.1 fL (81-99); MONOCYTES # (AUTO) 0.7 (0.2-0.8); MONOCYTES % 8.3 % (4.4-11.3); NEUTROPHILS % 63.6 % (38.7-80.0); PLATELET COUNT 202 x10e3/uL (140-360); RED BLOOD COUNT 4.17 x10e6/uL (4.3-5.7)
[2019-01-31] MEDS: ALTEPLASE RECOMBINANT 8 MG in DEXTROSE 5% 250ML 250 ML IV PRN ×2 (05:12→19:48)
[2019-01-31 05:32] LABS: ANION GAP 10.9 mmol/L (8-16); BLOOD UREA NITROGEN 11 mg/dL (7-26); BUN/CREATININE RATIO 12 (6-25); CALCIUM 8.8 mg/dL (8.4-10.2); CARBON DIOXIDE 26 mmol/L (22-29); CHLORIDE 103 mmol/L (98-107); CHOL/HDL RATIO 4.8 (3.9-4.7); CHOLESTEROL 172 MD/DL (0-199); CREATININE, SERUM 0.92 mg/dL (0.72-1.25); EST GLOMERULAR FILTRATION RATE > 60 ML/MIN (60-); GLUCOSE 115 mg/dL (74-118); HDL CHOLESTEROL 36 MG/DL (40-60); LDL CHOLESTEROL 107 MG/DL (60-130); POTASSIUM 3.9 mmol/L (3.5-5.1); SODIUM 136 mmol/L (136-145); TRIGLYCERIDES 143 MG/DL (0-149)
--- NOTE | 2019-01-31 05:40 | NUR ---
PTT 126, Heparin placed on hold, will restart in one hour at 900 u /hr
[2019-01-31 05:59] LABS: CREATINE KINASE 1008 IU/L (30-200)
[2019-01-31] MEDS: SODIUM CHLORIDE 0.9% 1000ML 1,000 ML IV SCH ×2 (06:18→20:32)
--- NOTE | 2019-01-31 06:40 | NUR ---
Heparin gtt restarted at 900 u/hr
[2019-01-31] MEDS: LAMOTRIGINE 100 MG TAB PO SCH (07:47)
[2019-01-31] MEDS: FAMOTIDINE 20 MG/2 ML VIAL IV SCH ×2 (09:01→21:20)
[2019-01-31] MEDS ORDERED: FAMOTIDINE 20 MG/2 ML VIAL IV ONE ×2 (09:02→21:24)
[2019-01-31] MEDS: MORPHINE SULFATE INJ 4 MG/ML INJ 1ML IV PRN ×2 (12:38→18:15)
--- NOTE | 2019-01-31 13:42 | Progress Note ---
DATE: 01/31/2019 Cardiology Progress Note SUBJECTIVE: The patient is feeling better. His leg is warm and less painful, status post thrombolytic infusion. OBJECTIVE: VITAL SIGNS: Temperature is 98.7, heart rate is 78, respirations are 17, blood pressure is 114/78, and oxygen saturation is 96% on room air. GENERAL: He is well appearing, in no apparent distress. CARDIOVASCULAR: Regular rate and rhythm. LUNGS: Clear to auscultation. ABDOMEN: Soft, nontender, and nondistended. EXTREMITIES: His left lower extremity is warm, diminished pulses. IMPRESSION: 1. Acute limb ischemia of the left lower extremity, status post intervention. 2. Peripheral artery disease. 3. Hyperlipidemia. RECOMMENDATIONS: The patient will be taken back to the cardiac catheterization laboratory for completion of his intervention. Continue to monitor closely his hemodynamics and telemetry. The patient will need to be transitioned over to anticoagulation and anti-platelet therapy once tPA has stopped. We will continue to monitor his daily hemoglobins as well. Roberto Vogel DO BM/MODL /[id number]
[2019-01-31] MEDS: HEPARIN 25,000 UNIT 900 UNIT in DEXTROSE 5% 250ML 250 ML IV SCH (13:45)
[2019-01-31] MEDS: HYDROCODONE/APAP 5MG-325MG TAB PO PRN (14:03)
[2019-01-31] MEDS ORDERED: eliquis PO (14:40)
[2019-01-31] MEDS ORDERED: ABILIFY10 MG PO (14:40)
[2019-01-31] MEDS ORDERED: ASPIRIN81 MG PO (14:40)
[2019-01-31] MEDS ORDERED: PRAVASTATIN SOD20 MG PO (14:40)
--- NOTE | 2019-01-31 14:49 | NUR ---
PT DISCUSSED IN BARRIER ROUNDS; 100% STENOSED, GOING TO POSTAL SUPPORT EMPLOYEE TODAY, ON HEP DRIP. STENTS PLACED ON .
--- NOTE | 2019-01-31 17:56 | NUR ---
Patient remained on heparin drip and TPA drip throughout the shift. Per heprain drip protocol based on PTT drawn at 1200 drip decreased by 100 units. Next PTT due at 1830. Patients R groin remains free of s/s of hematoma. Pedal pules checked bilateral lower extremities q4. Pulse is faint with Doppler on L foot. Strong palpable pulses on R foot. Per Dr. 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
--- NOTE | 2019-01-31 20:39 | NUR ---
Left foot warm on lateral aspect to toes, DP pulse faint by doppler. Assisted patient to roll to right side, pillows placed behind back for support. Reminded importance of keeping right leg straight at all times
[2019-01-31] MEDS: ZOLPIDEM TARTRATE 5 MG TAB PO PRN (21:20)
[2019-02-01] VITALS (22 sets, daily range): BP systolic 107–143; BP diastolic 68–87
--- NOTE | 2019-02-01 00:56 | NUR ---
PTT 90.3 - HEPARIN GTT DECREASED BY 100 U/HR TO 700 U/HR
[2019-02-01] MEDS: ALTEPLASE RECOMBINANT 8 MG in DEXTROSE 5% 250ML 250 ML IV PRN ×3 (04:04→22:55)
[2019-02-01 04:58] LABS: BASOPHILS % 0.3 % (0.0-1.0); EOSINOPHILS # (AUTO) 0.4 (0.0-0.4); EOSINOPHILS % 4.4 % (0.0-6.0); HEMOGLOBIN 11.3 g/dL (14.0-18.0); LYMPHOCYTES # (AUTO) 1.8 (1.0-3.2); LYMPHOCYTES % 20.2 % (18.0-39.1); MEAN CORPUSCULAR HEMOGLOBIN 27.6 pg (28-32); MEAN CORPUSCULAR HGB CONC 33.2 g/dL (31-35); MEAN CORPUSCULAR VOLUME 83.1 fL (81-99); MONOCYTES # (AUTO) 0.7 (0.2-0.8); NEUTROPHILS % 66.4 % (38.7-80.0); PLATELET COUNT 195 x10e3/uL (140-360); RED BLOOD COUNT 4.09 x10e6/uL (4.3-5.7)
[2019-02-01] MEDS: SODIUM CHLORIDE 0.9% 1000ML 1,000 ML IV SCH ×2 (05:04→15:37)
[2019-02-01] MEDS ORDERED: LIDOCAINE HCL 2% LOCAL 20 ML VIAL ONE (07:42)
[2019-02-01] MEDS ORDERED: FENTANYL CITRATE/PF 100MCG/2 ML INJ ONE (07:42)
[2019-02-01] MEDS ORDERED: HEPARIN SOD (PORCINE) 1000 UNIT/ML 30ML ONE (07:42)
[2019-02-01] MEDS ORDERED: MIDAZOLAM HCL 2 MG/2 ML VIAL ONE (07:42)
[2019-02-01] MEDS ORDERED: NITROGLYCERIN/D5W 200 MCG/ML 250 ML ONE (07:43)
[2019-02-01] MEDS ORDERED: IOPAMIDOL 300MG/ML 100 ML INFUS..BTL IV ONE (07:43)
[2019-02-01] MEDS ORDERED: SODIUM CHLORIDE 0.9% 1000ML 1,000 ML ONE (07:43)
[2019-02-01] MEDS ORDERED: HEPARIN 25,000 UNIT 25,000 UNIT in DEXTROSE 5% 250ML 250 ML IV SCH (07:45)
[2019-02-01] MEDS ORDERED: HEPARIN SOD/SOD CHLORIDE 2,000 ML ONE (08:15)
[2019-02-01] MEDS ORDERED: ALTEPLASE RECOMBINANT 2 MG/2 ML VIAL ONE (08:50)
[2019-02-01] MEDS: FAMOTIDINE 20 MG/2 ML VIAL IV SCH ×2 (09:00→20:26)
[2019-02-01] MEDS: LAMOTRIGINE 100 MG TAB PO SCH (09:45)
--- NOTE | 2019-02-01 10:51 | Progress Note ---
DATE: 02/01/2019 Cardiology Progress Note SUBJECTIVE: The patient reports that his left leg has increased pain and unable to move with a full range of motion. OBJECTIVE: VITAL SIGNS: Temperature is 99.1, heart rate 76, respirations 21, blood pressure is 111/78, and oxygen saturation is 94% on room air. GENERAL: He is well appearing, no apparent distress. CARDIOVASCULAR: He has regular rate and rhythm. LUNGS: Clear to auscultation. ABDOMEN: Soft, nontender, nondistended. EXTREMITIES: His left lower extremity is warm. There is a dopplerable pulse of his dorsalis pedis. CARDIOVASCULAR MEDICATIONS: Reviewed. LABORATORY DATA: Reviewed. Hemoglobin 11.3. CK is 1008. Troponin less than 0.001. Creatinine 0.92, PTT is 64.1. IMPRESSION: 1. Acute limb ischemia of the left lower extremity, status post intervention with thrombolytic catheter. 2. Peripheral artery disease. 3. Hyperlipidemia. 4. Anemia. RECOMMENDATIONS: The patient will be brought back to the cardiac catheterization laboratory today for completion of his intervention. Continue anticoagulation and tPA at this point in time. Continue to monitor his hemoglobin, given significant amount of thrombolytics and blood thinners. Continue all other current cardiovascular medications. DO SANDRA Salgado/JEMIMAL /[id number]
--- NOTE | 2019-02-01 11:31 | NUR ---
Talked to Dr. Vogel about heparin order, said to run heparin at the set rate 300units/hr through the sheath. No need to run additional heparin weight based protocol.
[2019-02-01] MEDS ORDERED: HEPARIN 25,000 UNIT/D5W 250ML 250 ML IV SCH (11:45)
[2019-02-01] MEDS: HYDROCODONE/APAP 5MG-325MG TAB PO PRN ×2 (12:25→22:55)
[2019-02-01] MEDS: MORPHINE SULFATE INJ 4 MG/ML INJ 1ML IV PRN ×2 (13:37→15:21)
[2019-02-01] MEDS ORDERED: HEPARIN 25,000 UNIT 1,300 UNIT in DEXTROSE 5% 250ML 250 ML IV SCH (14:30)
[2019-02-01] MEDS: HEPARIN 25,000 UNIT 1,300 UNIT in DEXTROSE 5% 250ML 250 ML IV SCH (14:45)
[2019-02-01] MEDS ORDERED: HYDROMORPHONE 1MG/1ML INJ IV ONE (15:52)
[2019-02-01] MEDS: ARIPIPRAZOLE 20 MG TAB PO SCH (20:26)
[2019-02-01] MEDS: PRAVASTATIN 20 MG TAB PO SCH (20:26)
[2019-02-01] MEDS ORDERED: FAMOTIDINE 20 MG/2 ML VIAL IV ONE (20:28)
[2019-02-01] MEDS: HYDROMORPHONE 1MG/1ML INJ IV PRN (20:58)
[2019-02-01] MEDS: ZOLPIDEM TARTRATE 5 MG TAB PO PRN (22:55)
[2019-02-02] VITALS (22 sets, daily range): BP systolic 104–143; BP diastolic 67–96
[2019-02-02] MEDS: HYDROMORPHONE 1MG/1ML INJ IV PRN ×4 (01:40→14:45)
[2019-02-02] MEDS: SODIUM CHLORIDE 0.9% 1000ML 1,000 ML IV SCH ×3 (02:24→21:37)
[2019-02-02 05:14] LABS: BASOPHILS % 0.2 % (0.0-1.0); EOSINOPHILS # (AUTO) 0.3 (0.0-0.4); EOSINOPHILS % 2.5 % (0.0-6.0); HEMATOCRIT 29.6 % (38.2-49.6); LYMPHOCYTES # (AUTO) 1.5 (1.0-3.2); LYMPHOCYTES % 14.5 % (18.0-39.1); MEAN CORPUSCULAR HEMOGLOBIN 27.9 pg (28-32); MEAN CORPUSCULAR HGB CONC 33.8 g/dL (31-35); MEAN CORPUSCULAR VOLUME 82.7 fL (81-99); MONOCYTES % 9.5 % (4.4-11.3); NEUTROPHILS # (AUTO) 7.5 (2.1-6.9); NEUTROPHILS % 72.1 % (38.7-80.0); PLATELET COUNT 175 x10e3/uL (140-360); RED BLOOD COUNT 3.58 x10e6/uL (4.3-5.7); RED CELL DISTRIBUTION WIDTH 15.2 % (11.7-14.4)
[2019-02-02] MEDS: HEPARIN 25,000 UNIT 1,300 UNIT in DEXTROSE 5% 250ML 250 ML IV SCH (05:30)
[2019-02-02] MEDS: ALTEPLASE RECOMBINANT 8 MG in DEXTROSE 5% 250ML 250 ML IV PRN (06:00)
[2019-02-02 08:15] LABS: ANION GAP 13.2 mmol/L (8-16); BLOOD UREA NITROGEN 10 mg/dL (7-26); BUN/CREATININE RATIO 11 (6-25); CALCIUM 8.6 mg/dL (8.4-10.2); CARBON DIOXIDE 24 mmol/L (22-29); CHLORIDE 100 mmol/L (98-107); CREATININE, SERUM 0.87 mg/dL (0.72-1.25); EST GLOMERULAR FILTRATION RATE > 60 ML/MIN (60-); GLUCOSE 131 mg/dL (74-118); POTASSIUM 4.2 mmol/L (3.5-5.1); SODIUM 133 mmol/L (136-145)
[2019-02-02] MEDS: HYDROCODONE/APAP 5MG-325MG TAB PO PRN ×2 (08:42→10:51)
[2019-02-02] MEDS ORDERED: ADENOSINE 6MG/2ML 1 ML ONE (09:23)
[2019-02-02] MEDS ORDERED: METOPROLOL TARTRATE INJ 1 MG/ML VIAL ONE (09:29)
[2019-02-02 10:00] LABS: CREATINE KINASE 308 IU/L (30-200)
--- NOTE | 2019-02-02 10:58 | NUR ---
Dr Seven boyd.
[2019-02-02] MEDS: FAMOTIDINE 20 MG/2 ML VIAL IV SCH ×2 (11:11→21:24)
[2019-02-02] MEDS: LAMOTRIGINE 100 MG TAB PO SCH (11:11)
[2019-02-02] MEDS ORDERED: AMIODARONE HCL 360MG 200 ML IV SCH ×2 (11:15→12:00)
[2019-02-02] MEDS ORDERED: AMIODARONE HCL 150MG 100 ML IV ONE (11:15)
[2019-02-02] MEDS: AMIODARONE HCL 900 MG in DEXTROSE 5 % 500ML BOTTLE 500 ML IV SCH (11:30)
--- NOTE | 2019-02-02 13:23 | NUR ---
PT DISCUSSED IN BARRIER ROUNDS; NOW ON AMETER DRIP, WILL RETURN TO COPY EDITOR TODAY TO CONTINUE CARE PLAN
[2019-02-02] MEDS ORDERED: MIDAZOLAM HCL 2 MG/2 ML VIAL ONE (18:57)
[2019-02-02] MEDS ORDERED: FENTANYL CITRATE/PF 100MCG/2 ML INJ ONE (18:58)
[2019-02-02] MEDS ORDERED: HEPARIN SOD/SOD CHLORIDE 2,000 ML ONE (18:58)
[2019-02-02] MEDS ORDERED: IOPAMIDOL 300MG/ML 100 ML INFUS..BTL IV ONE (18:58)
[2019-02-02] MEDS ORDERED: LIDOCAINE HCL 2% LOCAL 20 ML VIAL ONE (18:58)
[2019-02-02] MEDS ORDERED: SODIUM CHLORIDE 0.9% 50ML 50 ML ONE (19:55)
--- NOTE | 2019-02-02 20:35 | NUR ---
Dr. Anton Wilkins consulted and rounding at this time. Ordered to watch for increased swelling and increased pain. Ordered not to wrap pt's leg at this time.
[2019-02-02] MEDS: ARIPIPRAZOLE 20 MG TAB PO SCH (21:24)
[2019-02-02] MEDS: PRAVASTATIN 20 MG TAB PO SCH (21:24)
--- NOTE | 2019-02-02 21:30 | NUR ---
TR band removed Addendum: 02/02/19 at 2201 by Earl Muller RN no bleeding noted, dressing applied
--- NOTE | 2019-02-02 21:35 | NUR ---
ACT 146 @ 20:00 in laborer brush clearing, right femoral arterial sheath pulled at 20:45 when pt arrived to ICU. Pressure held for 15 minutes, no bleeding or hematoma noted. Pressure dressing applied, will continue to monitor.
[2019-02-02] MEDS: APIXABAN 5 MG TABLET PO SCH (23:39)
[2019-02-03] VITALS (21 sets, daily range): BP systolic 106–137; BP diastolic 61–109
[2019-02-03] MEDS: ZOLPIDEM TARTRATE 5 MG TAB PO PRN ×2 (00:44→21:57)
[2019-02-03] MEDS: AMIODARONE HCL 900 MG in DEXTROSE 5 % 500ML BOTTLE 500 ML IV SCH (03:12)
[2019-02-03 06:18] LABS: BASOPHILS % 0.2 % (0.0-1.0); EOSINOPHILS # (AUTO) 0.3 (0.0-0.4); EOSINOPHILS % 2.8 % (0.0-6.0); HEMATOCRIT 20.2 % (38.2-49.6); LYMPHOCYTES # (AUTO) 1.5 (1.0-3.2); LYMPHOCYTES % 12.7 % (18.0-39.1); MEAN CORPUSCULAR HEMOGLOBIN 28.9 pg (28-32); MEAN CORPUSCULAR HGB CONC 34.7 g/dL (31-35); MEAN CORPUSCULAR VOLUME 83.5 fL (81-99); MONOCYTES # (AUTO) 1.2 (0.2-0.8); MONOCYTES % 9.9 % (4.4-11.3); NEUTROPHILS # (AUTO) 8.9 (2.1-6.9); NEUTROPHILS % 73.1 % (38.7-80.0); PLATELET COUNT 166 x10e3/uL (140-360); RED BLOOD COUNT 2.42 x10e6/uL (4.3-5.7); RED CELL DISTRIBUTION WIDTH 15.4 % (11.7-14.4)
--- NOTE | 2019-02-03 06:30 | NUR ---
Page out to Dr. Vogel (covering for [facility]) regarding critical hematocrit and drop in hemoglobin.
--- NOTE | 2019-02-03 07:08 | Operative Report ---
DATE OF PROCEDURE: 02/01/2019 SURGEON: Han Amezcua MD INDICATIONS: Critical limb ischemia, peripheral arterial disease, gangrene of stent, and acute limb ischemia of the left lower extremity. PROCEDURES PERFORMED: 1. Third order catheter placement, unilateral extremity angiogram. 2. Ultrasound guided access in the left posterior tibial artery. 3. Transcatheter lysis of the popliteal and posterior tibial arteries. 4. Angioplasty of the left popliteal artery and posterior tibial artery. COMPLICATIONS: None. RECOMMENDATIONS: Transcatheter lysis for 24 hours. DESCRIPTION OF PROCEDURE: Existing access was used for unilateral angiogram of the left lower extremity. Complete occlusion of the popliteal artery was noted. Ultrasound guided access into the left posterior tibial artery was obtained and 6-Urdu sheath was placed. Intravenous heparin was administered for anticoagulation. The chronic occlusion of the distal end of the popliteal cover stent was obtained with a Fixer Boarding Room wire. Angioplasty with a 4 mm balloon was performed. Lysis catheter was introduced, secured in place. The patient transferred to ICU in stable condition. Han Amezcua MD KSB/MODL /[id number]
--- NOTE | 2019-02-03 07:43 | Operative Report ---
DATE OF PROCEDURE: 02/02/2019 SURGEON: Han Amezcua MD INDICATION: Peripheral arterial disease, gangrene, critical limb ischemia, acute limb ischemia of the left lower extremity. PROCEDURES PERFORMED: 1. Third order catheter placement in the right femoral artery through the left superficial femoral artery with unilateral extremity angiogram. 2. Primary thrombectomy of the left popliteal artery. 3. Removal of lysis catheter for stent placement to the left popliteal artery. 4. Stent placement, left posterior tibial artery. COMPLICATIONS: None. RECOMMENDATIONS: Triple antiplatelet anticoagulant therapy for life. DESCRIPTION OF PROCEDURE: Existing sheath was used to perform an angiogram on the left lower extremity. Thrombus was noted within the left popliteal stent with complete occlusion. Primary thrombectomy was performed with minimal methodist of flow. Access from the posterior tibial artery was used to do an angioplasty the popliteal and posterior tibial arteries. A 7 x 40 self expanding stent was placed distal to the prior covered stent in the popliteal artery post dilated with a 7 mm drug balloon. Two overlapping 3.5 x 38 mm drug-eluting stents were placed in the posterior tibial artery. Zoroastrianism of flow with palpable pulse in the posterior tibial artery. Blood pressure 125 systolic in the posterior tibial artery with good wave form. The left pedal sheath was removed. TR band was applied to the foot. Right groin sheath was removed under manual pressure. The patient transferred to the ICU in stable condition. Han Amezcua MD KSB/MODL /[id number]
[2019-02-03] MEDS: APIXABAN 5 MG TABLET PO SCH ×2 (07:44→16:07)
[2019-02-03] MEDS: SODIUM CHLORIDE 0.9% 1000ML 1,000 ML IV SCH ×2 (07:44→16:07)
[2019-02-03] MEDS: LAMOTRIGINE 100 MG TAB PO SCH (07:44)
[2019-02-03] MEDS: FAMOTIDINE 20 MG/2 ML VIAL IV SCH ×2 (08:26→21:47)
[2019-02-03] MEDS ORDERED: SODIUM CHLORIDE 0.9% 250ML 250 ML IV ONE (08:30)
--- NOTE | 2019-02-03 08:39 | NUR ---
pt able to amb to [facility] for bm. still c/o mild pain and numbness to left foot. dr ray rounded, aware of labs. pt to recv [address] christy rounded also.
[2019-02-03] MEDS: ACETAMINOPHEN 325 MG TAB PO PRN ×2 (11:29→18:44)
[2019-02-03] MEDS ORDERED: SODIUM CHLORIDE 0.9% 250ML 250 ML ONE ×2 (13:25→16:45)
[2019-02-03] MEDS ORDERED: ASPIRIN 325 MG TAB PO ONE (14:45)
[2019-02-03] MEDS ORDERED: CLOPIDOGREL BISULFATE 75 MG TAB PO ONE (14:45)
[2019-02-03] MEDS ORDERED: ASPIRIN 81 MG CHEW TAB PO ONE (15:00)
--- NOTE | 2019-02-03 15:32 | NUR ---
dr jennyfer boyd for consult
[2019-02-03] MEDS ORDERED: FUROSEMIDE INJ 10 MG/ML 2 ML VIAL IV ONE (16:00)
[2019-02-03] MEDS ORDERED: AMIODARONE HCL 200 MG TAB PO SCH (17:00)
[2019-02-03] MEDS: AMIODARONE HCL 200 MG TAB PO SCH (17:21)
--- NOTE | 2019-02-03 18:01 | Progress Note ---
DATE: 02/03/2019 SUBJECTIVE: The patient reports left lower extremity swelling and pain. OBJECTIVE: VITAL SIGNS: Temperature is 99.0, heart rate is 87, respirations are 18, blood pressure is 125/60, and oxygen saturation is 97% on room air. GENERAL: Well appearing, well built, in no apparent distress. CARDIOVASCULAR: Regular rate and rhythm. LUNGS: Clear to auscultation. ABDOMEN: Soft, nontender, nondistended. EXTREMITIES: Left lower extremity edema. Left pulses dopplerable. NEUROLOGIC: No focal deficits noted. CARDIOVASCULAR MEDICATIONS: Reviewed. LABORATORY DATA: Revealed. Hemoglobin is 7. Telemetry monitoring revealed normal sinus rhythm. IMPRESSION: 1. Acute limb ischemia, left lower extremity, status post intervention. 2. Peripheral artery disease. 3. Nonsustained ventricular tachycardia and supraventricular tachycardia. 4. Hyperlipidemia. 5. Anemia. RECOMMENDATIONS: Continue aspirin, Plavix, and Eliquis. We will transfuse the patient for acute symptomatic anemia. Continue to monitor H and H's. Continue to monitor closely on telemetry. Roberto Vogel DO BM/MODL /[id number]
[2019-02-03] MEDS: PRAVASTATIN 20 MG TAB PO SCH (21:50)
[2019-02-03] MEDS: ARIPIPRAZOLE 20 MG TAB PO SCH (21:50)
[2019-02-03] MEDS: HYDROCODONE/APAP 5MG-325MG TAB PO PRN (22:24)
[2019-02-03 22:41] LABS: BASOPHILS % 0.2 % (0.0-1.0); EOSINOPHILS # (AUTO) 0.4 (0.0-0.4); EOSINOPHILS % 2.8 % (0.0-6.0); HEMATOCRIT 23.4 % (38.2-49.6); LYMPHOCYTES # (AUTO) 1.8 (1.0-3.2); LYMPHOCYTES % 14.1 % (18.0-39.1); MEAN CORPUSCULAR HGB CONC 34.2 g/dL (31-35); MEAN CORPUSCULAR VOLUME 84.8 fL (81-99); MONOCYTES # (AUTO) 1.4 (0.2-0.8); MONOCYTES % 10.7 % (4.4-11.3); NEUTROPHILS % 70.5 % (38.7-80.0); PLATELET COUNT 182 x10e3/uL (140-360); RED BLOOD COUNT 2.76 x10e6/uL (4.3-5.7); RED CELL DISTRIBUTION WIDTH 14.8 % (11.7-14.4)
--- NOTE | 2019-02-03 23:32 | NUR ---
Pt with temp 101.3. The WBC's are elevated. Dr Vogel notified and orders received. Addendum: 02/03/19 at 2348 by Jeramie Randall RN Dr Vogel also notified pt is having discomfort to the foot, ankle which was without complaints earlier.
[2019-02-04] VITALS (13 sets, daily range): BP systolic 116–137; BP diastolic 58–77
[2019-02-04] MEDS ORDERED: ACETAMINOPHEN 325 MG TAB PO ONE
[2019-02-04] MEDS: SODIUM CHLORIDE 0.9% 1000ML 1,000 ML IV SCH ×3 (02:44→11:43)
[2019-02-04 06:25] LABS: BASOPHILS % 0.3 % (0.0-1.0); EOSINOPHILS # (AUTO) 0.4 (0.0-0.4); EOSINOPHILS % 3.1 % (0.0-6.0); HEMATOCRIT 22.5 % (38.2-49.6); HEMOGLOBIN 7.8 g/dL (14.0-18.0); LYMPHOCYTES # (AUTO) 1.3 (1.0-3.2); LYMPHOCYTES % 10.1 % (18.0-39.1); MEAN CORPUSCULAR HEMOGLOBIN 29.7 pg (28-32); MEAN CORPUSCULAR HGB CONC 34.7 g/dL (31-35); MEAN CORPUSCULAR VOLUME 85.6 fL (81-99); MONOCYTES # (AUTO) 1.4 (0.2-0.8); MONOCYTES % 11.2 % (4.4-11.3); NEUTROPHILS # (AUTO) 9.3 (2.1-6.9); NEUTROPHILS % 73.6 % (38.7-80.0); PLATELET COUNT 187 x10e3/uL (140-360); RED BLOOD COUNT 2.63 x10e6/uL (4.3-5.7)
[2019-02-04] MEDS: FAMOTIDINE 20 MG/2 ML VIAL IV SCH ×2 (08:17→20:51)
[2019-02-04] MEDS: AMIODARONE HCL 200 MG TAB PO SCH ×2 (08:17→16:12)
[2019-02-04] MEDS: LAMOTRIGINE 100 MG TAB PO SCH (08:18)
[2019-02-04] MEDS: APIXABAN 5 MG TABLET PO SCH ×2 (08:18→16:12)
[2019-02-04] MEDS: ACETAMINOPHEN 325 MG TAB PO PRN ×2 (08:19→20:51)
[2019-02-04 08:50] LABS: BASOPHILS % 0.2 % (0.0-1.0); EOSINOPHILS # (AUTO) 0.3 (0.0-0.4); EOSINOPHILS % 2.7 % (0.0-6.0); HEMATOCRIT 21.5 % (38.2-49.6); HEMOGLOBIN 7.2 g/dL (14.0-18.0); LYMPHOCYTES # (AUTO) 1.1 (1.0-3.2); LYMPHOCYTES % 9.4 % (18.0-39.1); MEAN CORPUSCULAR HEMOGLOBIN 28.6 pg (28-32); MEAN CORPUSCULAR HGB CONC 33.5 g/dL (31-35); MEAN CORPUSCULAR VOLUME 85.3 fL (81-99); MONOCYTES # (AUTO) 0.9 (0.2-0.8); MONOCYTES % 7.6 % (4.4-11.3); NEUTROPHILS # (AUTO) 9.4 (2.1-6.9); NEUTROPHILS % 78.4 % (38.7-80.0); PLATELET COUNT 181 x10e3/uL (140-360); RED BLOOD COUNT 2.52 x10e6/uL (4.3-5.7)
[2019-02-04] MEDS ORDERED: CLOPIDOGREL BISULFATE 75 MG TAB PO SCH (09:00)
[2019-02-04] MEDS ORDERED: ASPIRIN 325 MG TAB PO SCH (09:00)
[2019-02-04] MEDS ORDERED: ASPIRIN 81 MG CHEW TAB PO SCH (09:00)
[2019-02-04 09:04] LABS: ANION GAP 14.7 mmol/L (8-16); BLOOD UREA NITROGEN 12 mg/dL (7-26); BUN/CREATININE RATIO 12 (6-25); CALCIUM 8.1 mg/dL (8.4-10.2); CARBON DIOXIDE 23 mmol/L (22-29); CHLORIDE 99 mmol/L (98-107); CREATININE, SERUM 0.98 mg/dL (0.72-1.25); EST GLOMERULAR FILTRATION RATE > 60 ML/MIN (60-); GLUCOSE 159 mg/dL (74-118); POTASSIUM 3.7 mmol/L (3.5-5.1); SODIUM 133 mmol/L (136-145)
--- NOTE | 2019-02-04 11:09 | Diagnostic Imaging Report ---
EXAMINATION: CHEST SINGLE (PORTABLE) INDICATION: Fever. COMPARISON: Chest radiograph 01/30/2019. FINDINGS: TUBES and LINES: None. LUNGS: Lungs are moderately inflated. There is no evidence of pneumonia or pulmonary edema. PLEURA: No pleural effusion or pneumothorax. HEART AND MEDIASTINUM: The cardiomediastinal silhouette is unremarkable. BONES AND SOFT TISSUES: No acute osseous abnormality. UPPER ABDOMEN: No free air under the diaphragm. IMPRESSION: No acute radiographic abnormality. Signed by: Dr. Carmelo Flores MD on 02/04/2019 11:06 AM
--- NOTE | 2019-02-04 12:20 | NUR ---
Nutrition Screen Note RD Recommendation for Physician: Continue diet as ordered Plan of Care: RD following, monitoring for tolerance and adequacy Nutrition reason for involvement: LOS Primary Diagnose(s): Ischemic Leg PMH: HTN peripheral arterial disease Ht: 65in Wt:193lb BMI:32.1 kg/m2 IBW:142lb +/-10% RD Assessment: (01/05/2019) Chart reviewed. Labs and meds reviewed. Initial encounter with patient. 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 Denies any N,V,D nor has any difficulty chewing or swallowing. No wt changes. No food allergies. Current Diet: Cardiac diet. Malnutrition Evaluation (01/05/2019) The patient does not meet criteria for a specified degree of malnutrition at this time. Will re-evaluate at follow-up as appropriate. Diet Education Needs Assessment: Diet education not indicated. Nutrition Care Level: Low Signed: Joo Pretty RD, LD, [facility]
--- NOTE | 2019-02-04 13:11 | NUR ---
patient sat into chair for an hour and ate lunch. pt tolerated lunch. pt assisted back into bed per his request. patient with minimal assist with transferring to bed. needs assistance with maintaining balance.
--- NOTE | 2019-02-04 15:35 | Consultation ---
DATE OF CONSULTATION: 02/04/2019 I would like to thank Dr. Amezcua for asking me see Mr. Odell in consultation. REASON FOR CONSULTATION: 1. Critical limb ischemia to the left lower extremity, status post thrombectomy. 2. Peripheral artery disease. 3. Hyperlipidemia. HISTORY: A 68-year-old male who had ischemic left foot. He underwent catheter and thrombolysis of left femoral artery and started on tPA. Had aspiration and thrombectomy of the popliteal, femoral, and common femoral arteries and a large amount of thrombus was removed. The patient is doing better. The pain is less, however, he is still having significant issues with mobility and weakness of the left lower extremity. I am being asked to evaluate for rehab needs. PAST MEDICAL HISTORY: Hypertension. SURGERIES: As above. HABITS: Nonsmoker, nondrinker. SOCIAL HISTORY: Lives with his significant other in one-story home. He is ambulatory. 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 He was doing fairly well prior to the ischemic lesion. REVIEW OF SYSTEMS: GENERAL: Denies any fevers or chills. EYES: Denies. EARS: Denies. CARDIAC: Denies any chest pain. RESPIRATORY: Denies any shortness of breath. Rest of review of systems is essentially normal. The patient had a chest x-ray today, which showed no acute radiographic abnormality. Therapy, however, was initiated today. Having difficulty getting around, get three steps. However, this is just the beginning of his therapy. PHYSICAL EXAMINATION: GENERAL: Awake and alert, in no apparent distress at this time. EYES: Gaze conjugate. ORAL: Tongue is midline. NECK: Supple. HEART: Regular. LUNGS: Clear to auscultation. ABDOMEN: Nontender and nondistended. EXTREMITIES: Functional range of motion arms. Somewhat limited right leg, but very limited left leg because of weakness he could barely flex his hip and knee. He also has dorsiflexion weakness of the left foot. Manual muscle testing 4+ to 5/5 strength in the upper extremities bilaterally, in the right lower extremities 4- to 5/5 strength in the right leg. However, I think because of his referred pain in the left leg he could barely move his left leg secondary to weakness and not necessarily pain. IMPRESSION: 1. Critical limb ischemia to the left lower extremity, status post tPA and thrombectomy. 2. Patient with hypertension. PLAN: Therapies have been initiated. We will see how he responds and most likely will need inpatient rehab to optimize functional level. We will follow along with you. Thank you once again for allowing me to participate in the care of this pleasant but unfortunate patient. Tolu Erickson DO RPL/MODL /[id number]
--- NOTE | 2019-02-04 16:16 | Progress Note ---
DATE: 02/04/2019 Cardiology Progress Note SUBJECTIVE: The patient reports left lower extremity swelling and discomfort. OBJECTIVE: VITAL SIGNS: Temperature is 99.4, heart rate is 90, respirations are 20, blood pressure is 127/66, and oxygen saturation 100% on room air. GENERAL: Well appearing, in no apparent distress. CARDIOVASCULAR: Regular rate and rhythm. LUNGS: Clear to auscultation. ABDOMEN: Soft, nontender, and nondistended. EXTREMITIES: Left lower extremity swelling. The left leg is warm. CARDIOVASCULAR MEDICATIONS: Reviewed. LABORATORY DATA: Reviewed. Hemoglobin starting from 02/03 was 7, 8, 7.8, 7.2. Telemetry monitoring revealed normal sinus rhythm. IMPRESSION: 1. Acute limb ischemia, status post intervention. 2. Peripheral artery disease. 3. Nonsustained ventricular tachycardia, supraventricular tachycardia. 4. Anemia. 5. Hyperlipidemia. RECOMMENDATIONS: Continue aspirin, Plavix, and Eliquis. The patient received transfusion, however, his hemoglobin did not respond appropriately. His hemoglobins continue to trend downwards. Check a fecal occult blood test. Check a hemoglobin in the morning. May need Gastroenterology consultation. Roberto Vogel DO BM/MODL /[id number]
--- NOTE | 2019-02-04 20:10 | NUR ---
received pt from room 193 to room 201, AAOx3, family at bedside, no resp distress, c/o pain to left leg, pain meds on board, bed in lowest position and call light in reach
--- NOTE | 2019-02-04 20:10 | NUR ---
tele box#9 with pt
[2019-02-04] MEDS: ZOLPIDEM TARTRATE 5 MG TAB PO PRN (20:51)
[2019-02-04] MEDS: PRAVASTATIN 20 MG TAB PO SCH (20:51)
[2019-02-04] MEDS: ARIPIPRAZOLE 20 MG TAB PO SCH (20:51)
[2019-02-05] VITALS (7 sets, daily range): BP systolic 112–127; BP diastolic 58–64
[2019-02-05 05:41] LABS: BASOPHILS % 0.4 % (0.0-1.0); EOSINOPHILS # (AUTO) 0.3 (0.0-0.4); EOSINOPHILS % 3.2 % (0.0-6.0); HEMATOCRIT 21.2 % (38.2-49.6); LYMPHOCYTES # (AUTO) 1.3 (1.0-3.2); LYMPHOCYTES % 12.8 % (18.0-39.1); MEAN CORPUSCULAR HEMOGLOBIN 28.7 pg (28-32); MEAN CORPUSCULAR VOLUME 86.9 fL (81-99); MONOCYTES % 9.6 % (4.4-11.3); NEUTROPHILS # (AUTO) 7.4 (2.1-6.9); PLATELET COUNT 213 x10e3/uL (140-360); RED BLOOD COUNT 2.44 x10e6/uL (4.3-5.7); RED CELL DISTRIBUTION WIDTH 15.5 % (11.7-14.4)
[2019-02-05] MEDS: LAMOTRIGINE 100 MG TAB PO SCH (09:05)
[2019-02-05] MEDS: APIXABAN 5 MG TABLET PO SCH ×2 (09:05→17:05)
[2019-02-05] MEDS: FAMOTIDINE 20 MG/2 ML VIAL IV SCH ×2 (09:05→21:00)
[2019-02-05] MEDS: AMIODARONE HCL 200 MG TAB PO SCH ×2 (09:05→17:05)
[2019-02-05] MEDS: ACETAMINOPHEN 325 MG TAB PO PRN (09:11)
--- NOTE | 2019-02-05 09:12 | NUR ---
SPOKE TO MD COLLINS REGARDING PT C/O OF TENDERNESS TO LEFT ANKLE . UPON INSPECTION LEFT ANKLE IS REDNESS AND HOT. TENDERNESS TO THE TOUCH . LEFT INNER ANKLE HAS A DRESSING S/P CATH INTACT. NO BLEEDING NOTED INFORMED MD ABOUT LOW HGB COUNT STATES HE WILL COME SEE THE PT TODAY , FOR NOW ORDERS FOR VENOUS DOPPLER GIVING THEATRICAL RIGGER CALLED TO GET US TEAM IN TO DO EXAM
--- NOTE | 2019-02-05 13:34 | Progress Note ---
DATE: 02/05/2019 Cardiology Progress Note SUBJECTIVE: The patient still reports left lower extremity pain and swelling and decreased mobility. OBJECTIVE: VITAL SIGNS: Temperature is 100.6, heart rate is 89, respirations are 20, blood pressure is 122/60, and oxygen saturation 95% on room air. GENERAL: Well appearing, in no apparent distress. CARDIOVASCULAR: Regular rate and rhythm. LUNGS: Clear to auscultation. ABDOMEN: Soft, nontender, and nondistended. EXTREMITIES: His left lower extremity is swollen, warm. Dopplerable pulses. Mild erythema. CARDIOVASCULAR MEDICATIONS: Reviewed. LABORATORY DATA: Reviewed. Hemoglobin 7, creatinine 0.9. Telemetry monitoring revealed sinus rhythm. IMPRESSION: 1. Acute limb ischemia, status post intervention. 2. Peripheral arterial disease. 3. History of nonsustained ventricular tachycardia. 4. Anemia. 5. Hyperlipidemia. 6. Fever. RECOMMENDATIONS: 1. Continue aspirin, Plavix, and Eliquis. 2. Venous Doppler today showed no DVT. 3. The patient did receive transfusion 2 days ago, however, did not respond appropriately. He is having no kimberly GI bleeding. Send a fecal occult blood. Check hemoglobin later today and transfuse for level less than 7. 4. Pulmonary Critical Care has drawn blood cultures and started antibiotics for possible cellulitis. This also could be related to reperfusion injury. Roberto Vogel DO BM/MODL /[id number]
[2019-02-05] MEDS: CEFAZOLIN SOD 1 GM/NS 50ML 50 ML IV SCH ×2 (13:42→21:20)
[2019-02-05] MEDS: HYDROCODONE/APAP 5MG-325MG TAB PO PRN (17:05)
[2019-02-05 17:58] LABS: BASOPHILS % 0.3 % (0.0-1.0); EOSINOPHILS # (AUTO) 0.3 (0.0-0.4); EOSINOPHILS % 3.4 % (0.0-6.0); HEMATOCRIT 22.3 % (38.2-49.6); HEMOGLOBIN 7.4 g/dL (14.0-18.0); LYMPHOCYTES # (AUTO) 1.3 (1.0-3.2); LYMPHOCYTES % 12.8 % (18.0-39.1); MEAN CORPUSCULAR HEMOGLOBIN 28.8 pg (28-32); MEAN CORPUSCULAR HGB CONC 33.2 g/dL (31-35); MEAN CORPUSCULAR VOLUME 86.8 fL (81-99); MONOCYTES % 10.2 % (4.4-11.3); NEUTROPHILS # (AUTO) 7.1 (2.1-6.9); NEUTROPHILS % 71.8 % (38.7-80.0); PLATELET COUNT 230 x10e3/uL (140-360); RED BLOOD COUNT 2.57 x10e6/uL (4.3-5.7); RED CELL DISTRIBUTION WIDTH 15.5 % (11.7-14.4)
--- NOTE | 2019-02-05 20:00 | NUR ---
PT IN BED, LEFT LEG ELEVEATED ON PILLOWS, DESHAUN HOSE ON LEFT LEG, NO DRAINAGE NOTED, SKIIN IS REDDENED AND WARM TO TOUCH, PULSES PRESENT, RIGHT GROIN WITH PUNCTURE WOUND PRESENT, NO DRAINAGE NOTED, INITIAL ASSESSMENT COMPLETE, VS STABLE, TEMP 99.0, CALL LIGHT IN REACH, NO DISTRESS NOTED, TELE ON PT, FAMILY AT BEDSIDE, TOLD TO CALL FOR HELP OR NEEDS
[2019-02-05] MEDS: CLOPIDOGREL BISULFATE 75 MG TAB PO SCH (21:00)
[2019-02-05] MEDS: ARIPIPRAZOLE 20 MG TAB PO SCH (21:00)
[2019-02-05] MEDS: PRAVASTATIN 20 MG TAB PO SCH (21:00)
[2019-02-05] MEDS: ASPIRIN 81 MG CHEW TAB PO SCH (21:00)
[2019-02-05] MEDS ORDERED: SODIUM CHLORIDE 0.9% 250ML 250 ML ONE (21:15)
[2019-02-05] MEDS: ZOLPIDEM TARTRATE 5 MG TAB PO PRN (21:25)
[2019-02-06] VITALS (8 sets, daily range): BP systolic 106–121; BP diastolic 57–75
--- NOTE | 2019-02-06 | NUR ---
pt awake easily, no distress noted, vs stable, temp 99.5 still, no other needs, call light in reach
[2019-02-06] MEDS: ACETAMINOPHEN 325 MG TAB PO PRN ×2 (03:30→20:30)
--- NOTE | 2019-02-06 04:00 | NUR ---
pt temp 100.6, meds given, other vs stable, no distress noted, no other needs call light in reach, continue to monitor pt condition
[2019-02-06 05:02] LABS: BASOPHILS % 0.3 % (0.0-1.0); EOSINOPHILS # (AUTO) 0.5 (0.0-0.4); EOSINOPHILS % 5.2 % (0.0-6.0); HEMATOCRIT 22.2 % (38.2-49.6); HEMOGLOBIN 7.2 g/dL (14.0-18.0); LYMPHOCYTES # (AUTO) 1.3 (1.0-3.2); LYMPHOCYTES % 13.7 % (18.0-39.1); MEAN CORPUSCULAR HEMOGLOBIN 28.7 pg (28-32); MEAN CORPUSCULAR HGB CONC 32.4 g/dL (31-35); MEAN CORPUSCULAR VOLUME 88.4 fL (81-99); MONOCYTES # (AUTO) 0.8 (0.2-0.8); MONOCYTES % 8.5 % (4.4-11.3); NEUTROPHILS # (AUTO) 6.7 (2.1-6.9); NEUTROPHILS % 70.8 % (38.7-80.0); PLATELET COUNT 250 x10e3/uL (140-360); RED BLOOD COUNT 2.51 x10e6/uL (4.3-5.7); RED CELL DISTRIBUTION WIDTH 15.7 % (11.7-14.4)
[2019-02-06] MEDS: CEFAZOLIN SOD 1 GM/NS 50ML 50 ML IV SCH ×3 (05:39→21:04)
--- NOTE | 2019-02-06 05:56 | NUR ---
pt awake easily, no distress noted, call light in reach, labs drawn, meds given
[2019-02-06] MEDS: LAMOTRIGINE 100 MG TAB PO SCH (08:15)
[2019-02-06] MEDS: APIXABAN 5 MG TABLET PO SCH ×2 (08:15→16:53)
[2019-02-06] MEDS: FAMOTIDINE 20 MG/2 ML VIAL IV SCH ×2 (08:15→20:29)
[2019-02-06] MEDS: AMIODARONE HCL 200 MG TAB PO SCH ×2 (08:17→16:53)
[2019-02-06] MEDS: HYDROCODONE/APAP 5MG-325MG TAB PO PRN ×2 (09:50→13:38)
--- NOTE | 2019-02-06 09:50 | NUR ---
Patient is refusing DESHAUN hose to left lower extremity, and Amiodorone.
--- NOTE | 2019-02-06 13:53 | NUR ---
IMM letter delivered and explained to pt. He verbalized understanding. Signed copy placed in chart. Copy placed in pt's transition of care folder.
--- NOTE | 2019-02-06 14:30 | NUR ---
is here making rounds, notified her that patient is refusing AMiodorone and wants to have it discontinued, if possible, she also said its OK to left DESHAUN singh off of LLE
--- NOTE | 2019-02-06 14:35 | NUR ---
DISCUSSED IN BARRIER ROUNDS, PATIENT HGB STILL LAYS BETWEEN 7.0 AND 7.5, EVEN AFTER BLOOD TRANSFUSION NO HGB STAYS IN 7 RANGE. PENDING BLOOD CULTURES AND STOOL OCCULT SAMPLE. PATIENT POSSIBLE INPATIENT REHAB CANDIDATE. DR. MIRA RAMIREZ CONSULTED. PENDING RECOMMENDATION AND ORDER FOR INITIATION.
[2019-02-06] MEDS: HYDROCODONE/APAP 10MG-325MG TAB PO PRN (18:30)
--- NOTE | 2019-02-06 18:41 | Progress Note ---
DATE: 02/06/2019 Cardiology Progress Note SUBJECTIVE: The patient denies chest pain or shortness of breath. OBJECTIVE: VITAL SIGNS: Temperature 99 degrees, pulse 78, respiratory rate 19, blood pressure 108/57, oxygen saturation 98% on room air. GENERAL: Awake, alert, in no acute distress. LUNGS: Clear to auscultation bilaterally. No wheezes or crackles. CARDIOVASCULAR: Normal rate. Regular rhythm. No murmur. Normal S1 and S2. ABDOMEN: Soft. Nontender. EXTREMITIES: Left lower extremity remains erythematous and swollen. CARDIAC MEDICATIONS: 1. Apixaban 5 mg p.o. b.i.d. 2. Plavix 75 mg p.o. daily. 3. Aspirin 81 mg p.o. daily. 4. Amiodarone 200 mg p.o. b.i.d. LABORATORY DATA: WBC 9.49, hemoglobin 7.2, hematocrit 22.2, platelets 250. TELEMETRY: Normal sinus rhythm. IMPRESSION: 1. Acute limb ischemia, status post intervention. 2. Peripheral arterial disease. 3. History of nonsustained ventricular tachycardia. 4. Suspected left lower extremity cellulitis. 5. Hyperlipidemia. 6. Fever. 7. Anemia. RECOMMENDATIONS: Continue current cardiac medications. Hold amiodarone for now and monitor closely on telemetry. Monitor and replete electrolytes. Monitor H and H closely and transfuse as needed for hemoglobin less than 7. The patient was started on IV antibiotics for possible lower extremity cellulitis. However, this could be also secondary to reperfusion injury, we will consult Infectious Disease. I appreciate architecture consultant assistance. Thank you for this consult. We will continue to follow. Samantha Maki MD ABS/MODL /[id number]
--- NOTE | 2019-02-06 19:41 | Progress Note ---
DATE: 02/06/2019 SUBJECTIVE: Mr. Odell was seen on rounds today. He is doing okay. He walks well. He walked about 70 feet, however, he was in excruciating pain at the end of his walk. There is also some increased erythema at the distal foot. Clinically, except for the leg, everything else seems to be okay. OBJECTIVE: Vital signs are stable, but white cell count is 9.49, hemoglobin 7.2, hematocrit 22.2, and platelets of 250. His left leg is little more proximal splint, however, noted he is also having a little bit of edema to the left distal lower leg edema. IMPRESSION: 1. Peripheral vascular disease. 2. Debilitation. PLAN: I told him not to over exert with therapy. He starts hurting just back off. He also seems to do better when his leg is raised compared to hanging down. Defer to medical team. At this time, the patient's progression with mobility is going to be limited especially if there is a big demand on that leg. Discussed with the patient. Tolu Erickson DO RPL/MODL /[id number]
[2019-02-06] MEDS: CLOPIDOGREL BISULFATE 75 MG TAB PO SCH (20:29)
[2019-02-06] MEDS: ASPIRIN 81 MG CHEW TAB PO SCH (20:29)
[2019-02-06] MEDS: ARIPIPRAZOLE 20 MG TAB PO SCH (20:29)
[2019-02-06] MEDS: PRAVASTATIN 20 MG TAB PO SCH (20:29)
[2019-02-06] MEDS: ZOLPIDEM TARTRATE 5 MG TAB PO PRN (20:45)
[2019-02-07] VITALS (8 sets, daily range): BP systolic 114–143; BP diastolic 65–87
[2019-02-07] MEDS: CEFAZOLIN SOD 1 GM/NS 50ML 50 ML IV SCH ×2 (05:01→14:30)
[2019-02-07 05:19] LABS: ANION GAP 14.9 mmol/L (8-16); BLOOD UREA NITROGEN 13 mg/dL (7-26); BUN/CREATININE RATIO 14 (6-25); CARBON DIOXIDE 25 mmol/L (22-29); CHLORIDE 101 mmol/L (98-107); CREATININE, SERUM 0.91 mg/dL (0.72-1.25); EST GLOMERULAR FILTRATION RATE > 60 ML/MIN (60-); GLUCOSE 93 mg/dL (74-118); POTASSIUM 3.9 mmol/L (3.5-5.1); SODIUM 137 mmol/L (136-145)
[2019-02-07] MEDS: HYDROCODONE/APAP 10MG-325MG TAB PO PRN ×2 (07:00→14:30)
[2019-02-07] MEDS: FAMOTIDINE 20 MG/2 ML VIAL IV SCH ×2 (08:35→20:56)
[2019-02-07] MEDS: APIXABAN 5 MG TABLET PO SCH ×2 (08:35→16:46)
[2019-02-07] MEDS: LAMOTRIGINE 100 MG TAB PO SCH (08:35)
--- NOTE | 2019-02-07 11:44 | Progress Note ---
DATE: 02/07/2019 SUBJECTIVE: The patient denies chest pain or shortness of breath. OBJECTIVE: VITAL SIGNS: Temperature 97.7 degrees, pulse 71, respiratory rate 18, blood pressure 143/87, and oxygen saturation 98% on 2 L nasal cannula. GENERAL: Awake, alert, in no acute distress. LUNGS: Clear to auscultation bilaterally. No wheezes or crackles. CARDIOVASCULAR: Normal rate. Regular rhythm. No murmur. Normal S1, S2. ABDOMEN: Soft. Nontender. EXTREMITIES: Left lower extremity with erythema and swelling. CARDIAC MEDICATIONS: 1. Apixaban 5 mg p.o. b.i.d. 2. Plavix 75 mg p.o. daily. 3. Aspirin 81 mg p.o. daily. LABORATORY DATA: Sodium 137, potassium 3.9, chloride 101, CO2 of 25, BUN 13, creatinine 0.91. TELEMETRY: Normal sinus rhythm. IMPRESSION: 1. Acute limb ischemia, status post intervention. 2. Peripheral arterial disease. 3. History of nonsustained ventricular tachycardia. 4. Severe left lower extremity cellulitis. 5. Hyperlipidemia. 6. Fever. 7. Anemia. RECOMMENDATIONS: Continue current cardiac medications. Monitor the patient closely on telemetry. Monitor hemoglobin and hematocrit. Appreciate hadoop consultant assistance. Pending determination regarding discharge to inpatient rehab versus SNF. Samantha Maki MD ABS/MODL /[id number]
[2019-02-07] MEDS ORDERED: CEFEPIME HCL 2 GM VIAL IV SCH (16:45)
--- NOTE | 2019-02-07 17:37 | Progress Note ---
DATE: 02/07/2019 SUBJECTIVE: Mr. Odell was seen on rounds today. . The patient walked twice today, painful left leg, but it was better. He is doing better with proximal hip flexion, extension, external, and internal rotation . OBJECTIVE: VITAL SIGNS: Temperature 98.2, respirations 18, heart rate 77, blood pressure 114/65. White cell count of 9.4, hemoglobin of 7.2, hematocrit 22.2, and platelets of 250. Functionally, he is doing little better. Currently, he is on apixaban, Plavix and aspirin. Mobilizing intermittently. IMPRESSION: 1. Acute ischemic limb, status post intervention. Episodes of nonsustained ventricular tachycardia. Continue present medications. Working on trying to get him to rehab, so he can mobilize and do little better with functional mobility. We will check with insurance, discuss with family. Tolu Erickson DO RPL/MODL /[id number]
[2019-02-07] MEDS: CEFEPIME 2 GM/NS 0.9% 100 ML 100 ML IV SCH (17:42)
--- NOTE | 2019-02-07 18:02 | Consultation ---
DATE OF CONSULTATION: 02/07/2019 REASON FOR CONSULTATION: Cellulitis of the leg. HISTORY OF PRESENT ILLNESS: This patient who comes in on 01/30, he presented to the emergency room with ischemic foot. The patient had ischemia of left lower extremity, was seen by Dr. Amezcua, underwent left lower extremity angiogram, placement of a stent. The patient was admitted to Intensive Care Unit. The patient started to have redness and swelling in his legs, so I was asked to see him. He has no fever or chills. PAST MEDICAL HISTORY: Hypertension, atherosclerotic disease. PAST SURGICAL HISTORY: Placement of stent. ALLERGIES: NKA. SOCIAL HISTORY: There is no smoking, drug abuse, or alcohol abuse. FAMILY HISTORY: Hypertension. REVIEW OF SYSTEMS: HEENT: Negative. PULMONARY: Negative. CARDIAC: Negative. GENITOURINARY: Negative. GASTROINTESTINAL: Negative. EXTREMITIES: Now complaining of left limb ischemia, status post intervention as above. PHYSICAL EXAMINATION: GENERAL: He is currently alert, oriented, does not seem to be in acute distress. VITAL SIGNS: Stable. Currently afebrile. HEENT: He is not icteric. NECK: Supple. CHEST: Clear. HEART: S1, S2. No murmur. ABDOMEN: Soft. Bowel sounds present. EXTREMITIES: There is redness and swelling of his leg. IMPRESSION: 1. Cellulitis of the leg, status post ischemic changes, status post stent placement. 2. Anemia. 3. Hypertension. RECOMMENDATIONS: Obtain blood cultures. We will put him on vancomycin and cefepime since the patient has been in the hospital for a few days. Discontinue Ancef. We will re-evaluate daily. We will follow with you. MD CHEYENNE Saeed/VALENTINE /[id number]
[2019-02-07] MEDS: VANCOMYCIN 1GM/NS 250 ML 250 ML IV SCH (18:56)
--- NOTE | 2019-02-07 19:00 | NUR ---
RECEIVED PATIENT IN REPORT. PATIENT STATES HE DOES NOT HAVE ANY PAIN AT THIS TIME. NO S&S OF DISTRESS NOTED. LLE IS RED AND SWOLLEN, PATIENT STATES NO CHANGE FROM PREVIOUS. DIMINISHED PULSES FELT, BUT GOOD CAPILLARY REFILL OF <3 SEC NOTED. BED LOCKED IN LOWEST POSITION, SIDE RAILS UPX2, CALL LIGHT IN REACH.
[2019-02-07] MEDS: CLOPIDOGREL BISULFATE 75 MG TAB PO SCH (20:56)
[2019-02-07] MEDS: ARIPIPRAZOLE 20 MG TAB PO SCH (20:56)
[2019-02-07] MEDS: PRAVASTATIN 20 MG TAB PO SCH (20:56)
[2019-02-07] MEDS: ZOLPIDEM TARTRATE 5 MG TAB PO PRN (20:56)
[2019-02-07] MEDS: ASPIRIN 81 MG CHEW TAB PO SCH (20:56)
[2019-02-08] VITALS (8 sets, daily range): BP systolic 109–137; BP diastolic 63–81
[2019-02-08] MEDS: VANCOMYCIN 1GM/NS 250 ML 250 ML IV SCH ×2 (04:59→17:17)
--- NOTE | 2019-02-08 05:00 | NUR ---
PATIENT STATES HE FEELS LIKE THE SWELLING IN HIS LLE IS GOING DOWN. PATIENT ABLE TO MOVE TOES AND ANKLE, WHICH HE STATES HE HAD NOT BEEN ABLE TO DO PREVIOUSLY. PATIENT IN GOOD SPIRITS.
--- NOTE | 2019-02-08 07:00 | NUR ---
BEDSIDE SHIFT CHANGE REPORT RECEIVED FROM CATRACHITO HARO. PT DENIES NEEDS AT THIS TIME.
[2019-02-08] MEDS: CEFEPIME 2 GM/NS 0.9% 100 ML 100 ML IV SCH ×2 (07:10→18:49)
[2019-02-08] MEDS: APIXABAN 5 MG TABLET PO SCH ×2 (08:35→17:17)
[2019-02-08] MEDS: LAMOTRIGINE 100 MG TAB PO SCH (08:35)
[2019-02-08] MEDS: FAMOTIDINE 20 MG/2 ML VIAL IV SCH (08:35)
--- NOTE | 2019-02-08 10:06 | NUR ---
ELICEO LM WITH DR. WHITEHEAD REQUESTING INITIATION OF PLACEMENT. ELICEO RECOMMENDED INPATIENT REHAB VS. [facility] ACUTE CARE PLACEMENT; PENDING RETURN CALL FOR ORDERS.
--- NOTE | 2019-02-08 13:23 | NUR ---
CM SPOKE TO DR. MORRELL REGARDING DISCHARGE PLAN. DR. MORRELL REQUESTS INPATIENT REHAB EVAL. ORDER WRITTEN PENDING CHOICE.
--- NOTE | 2019-02-08 14:02 | NUR ---
CM SPOKE TO PATIENT AT BEDSIDE REGARDING ORDER FOR INPATIENT REHAB HOSPITAL PLACEMENT. CHOICES GIVEN TO PATIENT. PATIENT SIGNED CHOICE FOR [facility]. [facility]. PENDING INSURANCE AUTH FOR TRANSFER. [address] [address] (P) [phone] (F) [phone] LIAISON: BERNADETTE [phone] MOT INITIATED AND GIVEN TO LEGAL BILLING SPECIALIST.
[2019-02-08] MEDS: HYDROCODONE/APAP 10MG-325MG TAB PO PRN (14:13)
[2019-02-08] MEDS: FAMOTIDINE 20 MG TAB PO SCH (17:17)
--- NOTE | 2019-02-08 19:48 | Progress Note ---
DATE: 02/08/2019 Cardiology progress note SUBJECTIVE: The patient denies chest pain or shortness of breath. OBJECTIVE: VITAL SIGNS: Temperature 98.4 degrees, pulse 81, respiratory rate 20, blood pressure 109/62, and oxygen saturation 97%. GENERAL: Awake and alert, in no acute distress. LUNGS: Clear to auscultation bilaterally. No wheezes or crackles. CARDIOVASCULAR: Normal rate. Regular rhythm. No murmur. Normal S1, S2. ABDOMEN: Soft, nontender. EXTREMITIES: Left lower extremity with 1+ pitting edema. The erythema appears slightly better. CARDIAC MEDICATIONS: Apixaban 5 mg p.o. b.i.d., clopidogrel 75 mg p.o. daily, and aspirin 81 mg p.o. daily. LABORATORY DATA: None today. TELEMETRY: Normal sinus rhythm. IMPRESSION: 1. Acute limb ischemia, status post intervention. 2. Peripheral arterial disease. 3. History of nonsustained ventricular tachycardia. 4. Severe left lower extremity cellulitis. 5. Hyperlipidemia. 6. Fever. 7. Anemia. PLAN: 1. Continue current cardiac medications. 2. Monitor the patient closely on telemetry. 3. Appreciate customer service sales consultant's assistance. 4. PT as tolerated. 5. Likely discharge to inpatient rehab versus LTAC based on need for IV antibiotics and tolerance for physical therapy. Samantha Maki MD ABS/MODL /[id number]
[2019-02-08] MEDS: ARIPIPRAZOLE 20 MG TAB PO SCH (20:38)
[2019-02-08] MEDS: CLOPIDOGREL BISULFATE 75 MG TAB PO SCH (20:38)
[2019-02-08] MEDS: ZOLPIDEM TARTRATE 5 MG TAB PO PRN (20:38)
[2019-02-08] MEDS: PRAVASTATIN 20 MG TAB PO SCH (20:38)
[2019-02-08] MEDS: ASPIRIN 81 MG CHEW TAB PO SCH (20:38)
[2019-02-09] VITALS (7 sets, daily range): BP systolic 107–140; BP diastolic 63–88
[2019-02-09] MEDS: VANCOMYCIN 1GM/NS 250 ML 250 ML IV SCH ×2 (05:15→16:48)
[2019-02-09] MEDS: CEFEPIME 2 GM/NS 0.9% 100 ML 100 ML IV SCH ×2 (06:47→18:00)
--- NOTE | 2019-02-09 07:00 | NUR ---
BEDSIDE SHIFT CHANGE REPORT RECEIVED FROM RADHA HARO. PT DENIES NEEDS AT THIS TIME.
--- NOTE | 2019-02-09 07:09 | NUR ---
REPORT GIVEN TO ONCOMING NURSE,WALKING ROUNDS MADE.PT RESTING IN BED WITH NO S/S OF DISTRESS.
[2019-02-09] MEDS: FAMOTIDINE 20 MG TAB PO SCH ×2 (08:12→16:48)
[2019-02-09] MEDS: LAMOTRIGINE 100 MG TAB PO SCH (08:12)
[2019-02-09] MEDS: APIXABAN 5 MG TABLET PO SCH ×2 (08:12→16:48)
[2019-02-09] MEDS: HYDROCODONE/APAP 10MG-325MG TAB PO PRN ×2 (08:13→16:58)
--- NOTE | 2019-02-09 10:39 | NUR ---
CM SPOKE TO PATIENT. PATIENT STATES HE HAD A CONVERSATION WITH DR. RAMIREZ AND DR. RAMIREZ STATES PATIENT WILL ONLY HAVE HIS DOCTORS IF HE GOES TO [facility]. PATIENT CIRCLED CHOICE FOR [facility] AT THIS TIME. CLINICAL SENT TO [facility]. DONNA HOOKS NOTIFIED. PENDING AUTH FOR BED. [facility] Address: [address] [place] [id number] FAX: [phone] DONNA HOOKS [phone]
--- NOTE | 2019-02-09 11:58 | Progress Note ---
DATE: 02/09/2019 Cardiology Progress Note SUBJECTIVE: The patient denies chest pain or shortness of breath. OBJECTIVE: VITAL SIGNS: Temperature 96 degrees, pulse 91, respiratory rate 18, blood pressure 135/88, oxygen saturation 97% on room air. GENERAL: Awake, alert, in no acute distress. LUNGS: Clear to auscultation bilaterally. No wheezes or crackles. CARDIOVASCULAR: Normal rate, regular rhythm. No murmur. Normal S1, S2. ABDOMEN: Soft, nontender. EXTREMITIES: Left lower extremity with 1+ pitting edema. The erythema is much improved, but remains warm to palpation. CARDIAC MEDICATIONS: Apixaban 5 mg p.o. b.i.d., aspirin 81 mg p.o. daily, Plavix 75 mg p.o. daily. LABORATORY DATA: None today. TELEMETRY: Normal sinus rhythm. IMPRESSION: 1. Acute limb ischemia, status post intervention. 2. Peripheral arterial disease. 3. History of nonsustained ventricular tachycardia. 4. Left lower extremity cellulitis. 5. Hyperlipidemia. 6. Fever. 7. Anemia. RECOMMENDATIONS: The patient has been afebrile with improvement in his left lower extremity cellulitis. Continue antibiotics per Infectious Disease. Monitor patient closely on telemetry. Continue current cardiac medications. PT as tolerated. The patient is pending transfer to inpatient rehab. Thank you for this consult. We will continue to follow. Samantha Maki MD ABS/MODL /[id number]
--- NOTE | 2019-02-09 20:33 | Progress Note ---
DATE: 02/09/2019 SUBJECTIVE: Mr. Odell is seen on rounds today. He is doing better. He is making progress toward goals. He is walking farther. He still has significant pain in the left leg, status post stenting. Erythema and swelling have slightly decreased. He is keeping left leg elevated. OBJECTIVE: VITAL SIGNS: Temperature 98.5, respirations 18, heart rate 80, blood pressure 115/67. LABORATORY DATA: There had been no new labs at this time. PT sheets, he did mobilize more. He is working on gait and transfer. IMPRESSION: 1. Ischemic left limb, status post stent. 2. Cellulitis/infection. PLAN: Continue supportive care. Continue to work on mobility training, checking with insurance for admission. Tolu Erickson DO RPL/MODL /[id number]
[2019-02-09] MEDS: ARIPIPRAZOLE 20 MG TAB PO SCH (21:00)
[2019-02-09] MEDS: PRAVASTATIN 20 MG TAB PO SCH (21:24)
[2019-02-09] MEDS: ASPIRIN 81 MG CHEW TAB PO SCH (21:24)
[2019-02-09] MEDS: CLOPIDOGREL BISULFATE 75 MG TAB PO SCH (21:24)
[2019-02-09] MEDS: ZOLPIDEM TARTRATE 5 MG TAB PO PRN (21:25)
[2019-02-10] VITALS (8 sets, daily range): BP systolic 111–132; BP diastolic 65–76
[2019-02-10] MEDS: VANCOMYCIN 1GM/NS 250 ML 250 ML IV SCH ×2 (05:03→16:11)
[2019-02-10] MEDS: CEFEPIME 2 GM/NS 0.9% 100 ML 100 ML IV SCH ×2 (06:45→18:07)
--- NOTE | 2019-02-10 07:00 | NUR ---
BEDSIDE SHIFT CHANGE REPORT RECEIVED FROM RADHA HARO. PT DENIES NEEDS AT THIS TIME.
--- NOTE | 2019-02-10 07:09 | NUR ---
REPORT GIVEN TO ONCOMING NURSE.WALKING ROUNDS MADE.PT RESTING IN BED WITH NO S/S OF DISTRESS.
[2019-02-10] MEDS: LAMOTRIGINE 100 MG TAB PO SCH (08:40)
[2019-02-10] MEDS: APIXABAN 5 MG TABLET PO SCH ×2 (08:40→16:11)
[2019-02-10] MEDS: FAMOTIDINE 20 MG TAB PO SCH ×2 (08:40→16:11)
[2019-02-10] MEDS: HYDROCODONE/APAP 10MG-325MG TAB PO PRN (09:46)
--- NOTE | 2019-02-10 14:22 | Progress Note ---
DATE: 02/10/2019 Cardiology Progress Note SUBJECTIVE: The patient denies chest pain or shortness of breath. OBJECTIVE: VITAL SIGNS: Temperature 98.4 degrees, pulse 78, respiratory rate 18, blood pressure 117/66, and oxygen saturation 95% on room air. GENERAL: Awake, alert, no acute distress. LUNGS: Clear to auscultation bilaterally. No wheezes or crackles. CARDIOVASCULAR: Normal rate. Regular rhythm. No murmur. Normal S1, S2. ABDOMEN: Soft, nontender. EXTREMITIES: 1+ pitting edema on the left. MEDICATIONS: Apixaban 5 mg p.o. b.i.d., Plavix 75 mg p.o. daily, and aspirin 81 mg p.o. daily. LABORATORY DATA: None today. TELEMETRY: Normal sinus rhythm. IMPRESSION: 1. Acute limb ischemia, status post intervention. 2. Peripheral arterial disease. 3. History of nonsustained ventricular tachycardia. 4. Left lower extremity cellulitis. 5. Hyperlipidemia. 6. Anemia. 7. Fever, resolved. RECOMMENDATIONS: Two weeks of IV antibiotics per Infectious Disease. Continue current cardiac medications. Pending insurance approval for inpatient rehab. Continue PT as tolerated. Thank you for this consult. We will continue to follow. Samantha Maki MD ABS/VALENTINE /[id number]
--- NOTE | 2019-02-10 15:37 | NUR ---
Nutrition Follow-up Note RD Recommendation for Physician: Continue diet as ordered Plan of Care: Patient has been screened and assessed for nutrition risk. At this time, the patient does not pose any nutrition risk. No further nutrition intervention is warranted at this time. Will re-evaluate if consulted by medical staff. Nutrition reason for involvement: Follow up Primary Diagnose(s): Ischemic Leg PMH: HTN, peripheral arterial disease Ht: 65in Wt:193lb; 182lb BMI:32.1 kg/m2 IBW:142lb +/-10% RD Assessment: (02/10/2019) Visited pt in the room. Pt reported good appetite with 75-100% meal intake. No complains of nausea or vomiting. Pt denied any chewing or swallowing difficulty. Current diet is appropriate and adequate. (02/04/2019) Chart reviewed. Labs and meds reviewed. Initial encounter with patient. 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 Denies any N,V,D nor has any difficulty chewing or swallowing. No wt changes. No food allergies. Current Diet: Cardiac diet. Malnutrition Evaluation (02/04/2019) The patient does not meet criteria for a specified degree of malnutrition at this time. Will re-evaluate at follow-up as appropriate. Diet Education Needs Assessment: Diet education not indicated. Nutrition Care Level: Low Signed: Etta Juarez, MS, RD, LD
--- NOTE | 2019-02-10 18:32 | Diagnostic Imaging Report ---
A single frontal view of the chest. HISTORY: Verify PICC placement COMPARISON: Chest radiograph February 04, 2019 DISCUSSION: Portable technique, limits sensitivity of the exam. Soft tissue attenuation further limits sensitivity of the exam. Numerous overlying monitoring leads. Tubes/Lines: Status post placement of a right upper extremity PICC line, the tip of the catheter appears to project in the region of the midsuperior vena cava. Lungs and pleura: Low lung volumes result in bibasilar vascular crowding, accentuation of the pulmonary interstitial markings, central pulmonary vasculature, and the cardiac silhouette. Allowing for these limitations, the findings are as follows: No evidence of a consolidative pneumonia or pulmonary alveolar edema. No definite pleural effusion or pneumothorax is identified. Heart and mediastinum: The cardiomediastinal silhouette appear(s) unremarkable. Bones and soft tissues: Appear unremarkable, given this limited exam. IMPRESSION: Status post right upper extremity PICC line placement. Signed by: Dr. Joseph Parry D.O., M.M.M. on 02/10/2019 6:28 PM
[2019-02-10] MEDS: PRAVASTATIN 20 MG TAB PO SCH (21:20)
[2019-02-10] MEDS: ARIPIPRAZOLE 20 MG TAB PO SCH (21:20)
[2019-02-10] MEDS: ASPIRIN 81 MG CHEW TAB PO SCH (21:20)
[2019-02-10] MEDS: CLOPIDOGREL BISULFATE 75 MG TAB PO SCH (21:20)
--- NOTE | 2019-02-10 23:50 | NUR ---
NO RESPIRATORY DISTRESS OBSERVED, PATIENT DENIES PAIN TO THE LEFT FOOT. CALL LIGHT WITHIN EASY REACH, HE'S INSTRUCTED TO CALL FOR ASSISTANCE NEEDED.
[2019-02-11] VITALS (7 sets, daily range): BP systolic 107–122; BP diastolic 57–89
--- NOTE | 2019-02-11 04:11 | NUR ---
PATIENT SOUNDLY ASLEEP, HE'S EASY TO AROUSE. NO RESPIRATORY DISTRESS OBSERVED, HE DENIES PAIN TO THE LEFT LEG. URINAL AND CALL LIGHT WITHIN EASY REACH.
[2019-02-11] MEDS: VANCOMYCIN 1GM/NS 250 ML 250 ML IV SCH ×2 (04:53→16:46)
[2019-02-11] MEDS: CEFEPIME 2 GM/NS 0.9% 100 ML 100 ML IV SCH ×2 (06:38→18:23)
[2019-02-11] MEDS: LAMOTRIGINE 100 MG TAB PO SCH (08:01)
[2019-02-11] MEDS: HYDROCODONE/APAP 10MG-325MG TAB PO PRN ×2 (08:01→19:29)
[2019-02-11] MEDS: FAMOTIDINE 20 MG TAB PO SCH ×2 (08:01→16:46)
[2019-02-11] MEDS: APIXABAN 5 MG TABLET PO SCH ×2 (08:01→16:46)
[2019-02-11] MEDS ORDERED: SODIUM CHLORIDE 0.9% 250ML 250 ML ONE (16:44)
--- NOTE | 2019-02-11 19:30 | NUR ---
PATIENT C/O PAIN TO THE LEFT LEG WITH PAIN SCORE #6, MEDICATED WITH NORCO 1TAB ORDERED. THE LEG IS ELEVATED ON PILLOW FOR COMFORT, NO REDNESS OR SWELLING OBSERVED TO THE LEG. CALL LIGHT WITHIN EASY REACH, HE'S INSTRUCTED TO CALL FOR ASSISTANCE UPON GETTING OUT OF THE BED DUE TO SIDE EFFECT FROM THE MEDICATION.
--- NOTE | 2019-02-11 20:46 | Progress Note ---
DATE: 02/11/2019 Cardiology Progress Note SUBJECTIVE: No major events overnight. OBJECTIVE: VITAL SIGNS: Temperature 97.7, pulse 72, respiratory rate 17, blood pressure 109/60, and saturating 96% on room air. GENERAL: Middle-aged man, in no acute distress. CARDIOVASCULAR: Regular rate and rhythm. No murmurs, rubs, or gallops. LUNGS: Clear to auscultation bilaterally. ABDOMEN: Soft, nontender, nondistended. NEURO AND PSYCH: Alert and oriented to person, place, and time. Normal affect. INPATIENT MEDICATIONS: Reviewed. LABORATORY DATA: Reviewed. TELEMETRY DATA: Reviewed. ASSESSMENT AND PLAN: 1. Acute limb ischemia, status post intervention. 2. Peripheral arterial disease. 3. History of nonsustained ventricular tachycardia. 4. Left lower extremity cellulitis. 5. Hyperlipidemia. 6. Anemia. 7. Fever. RECOMMENDATIONS: Antibiotics per primary team. Continue current cardiac medications. Awaiting inpatient rehab. Thank you for this consult. We will continue to follow. MD DHARMESH Dewitt/JEMIMAL /[id number]
[2019-02-11] MEDS: CLOPIDOGREL BISULFATE 75 MG TAB PO SCH (21:05)
[2019-02-11] MEDS: ARIPIPRAZOLE 20 MG TAB PO SCH (21:05)
[2019-02-11] MEDS: ASPIRIN 81 MG CHEW TAB PO SCH (21:05)
[2019-02-11] MEDS: PRAVASTATIN 20 MG TAB PO SCH (21:05)
--- NOTE | 2019-02-11 23:25 | NUR ---
ROUNDS MADE, PATIENT RESTING WITHOUT ACUTE DISTRESS. HE DENIES PAIN TO THE LEFT LEG, CALL LIGHT AND URINAL WITHIN EASY REACH.
[2019-02-12] VITALS (7 sets, daily range): BP systolic 99–114; BP diastolic 58–74
--- NOTE | 2019-02-12 04:17 | NUR ---
NO ACUTE DISTRESS OBSERVED, PATIENT DENIES PAIN TO THE LEFT LEG AND THE LEG REMAINS ELEVATED ON PILLOW FOR COMFORT. URINAL AND CALL LIGHT WITHIN EASY REACH.
[2019-02-12] MEDS: VANCOMYCIN 1GM/NS 250 ML 250 ML IV SCH ×2 (05:06→17:03)
[2019-02-12 06:06] LABS: BASOPHILS % 0.4 % (0.0-1.0); EOSINOPHILS # (AUTO) 0.5 (0.0-0.4); EOSINOPHILS % 6.1 % (0.0-6.0); HEMATOCRIT 27.9 % (38.2-49.6); HEMOGLOBIN 8.7 g/dL (14.0-18.0); LYMPHOCYTES # (AUTO) 1.5 (1.0-3.2); LYMPHOCYTES % 18.7 % (18.0-39.1); MEAN CORPUSCULAR HGB CONC 31.2 g/dL (31-35); MEAN CORPUSCULAR VOLUME 89.7 fL (81-99); MONOCYTES # (AUTO) 0.7 (0.2-0.8); MONOCYTES % 8.6 % (4.4-11.3); NEUTROPHILS % 62.5 % (38.7-80.0); PLATELET COUNT 577 x10e3/uL (140-360); RED BLOOD COUNT 3.11 x10e6/uL (4.3-5.7); RED CELL DISTRIBUTION WIDTH 15.7 % (11.7-14.4)
[2019-02-12 06:39] LABS: ALANINE AMINOTRANSFERASE 24 IU/L (0-55); ALBUMIN 3.1 g/dL (3.5-5.0); ALBUMIN/GLOBULIN RATIO 0.9 (0.8-2.0); ALKALINE PHOSPHATASE 91 IU/L (40-150); ANION GAP 15.2 mmol/L (8-16); BLOOD UREA NITROGEN 14 mg/dL (7-26); BUN/CREATININE RATIO 14 (6-25); CALCIUM 9.4 mg/dL (8.4-10.2); CARBON DIOXIDE 26 mmol/L (22-29); CHLORIDE 101 mmol/L (98-107); EST GLOMERULAR FILTRATION RATE > 60 ML/MIN (60-); GLUCOSE 92 mg/dL (74-118); POTASSIUM 4.2 mmol/L (3.5-5.1); SODIUM 138 mmol/L (136-145)
[2019-02-12] MEDS: CEFEPIME 2 GM/NS 0.9% 100 ML 100 ML IV SCH ×2 (06:54→18:33)
[2019-02-12 07:50] LABS: BAND NEUTROPHILS % (MANUAL) 1 %; EOSINOPHILS % (MANUAL) 3 % (0-7); LYMPHOCYTES % (MANUAL) 18 % (19-48); MONOCYTES % (MANUAL) 4 % (3.4-9.0); NEUTROPHILS % (MANUAL) 74 % (40-74)
[2019-02-12 07:51] LABS: PLATELET ESTIMATE ADEQUATE; PLATELET MORPHOLOGY COMMENT NORMAL; RBC MORPHOLOGY COMMENT NORMAL
[2019-02-12] MEDS: LAMOTRIGINE 100 MG TAB PO SCH (08:35)
[2019-02-12] MEDS: APIXABAN 5 MG TABLET PO SCH ×2 (08:35→17:03)
[2019-02-12] MEDS: FAMOTIDINE 20 MG TAB PO SCH ×2 (08:35→17:02)
[2019-02-12] MEDS: HYDROCODONE/APAP 10MG-325MG TAB PO PRN ×2 (08:36→23:52)
--- NOTE | 2019-02-12 20:15 | NUR ---
PATIENT RESTING QUIETLY IN BED, NO RESPIRATORY DISTRESS OBSERVED, HE DENIES PAIN TO THE LEFT LEG. SNACKS GIVEN, CALL LIGHT AND URINAL WITHIN EASY REACH.
[2019-02-12] MEDS: PRAVASTATIN 20 MG TAB PO SCH (21:01)
[2019-02-12] MEDS: ARIPIPRAZOLE 20 MG TAB PO SCH (21:01)
[2019-02-12] MEDS: ASPIRIN 81 MG CHEW TAB PO SCH (21:01)
[2019-02-12] MEDS: CLOPIDOGREL BISULFATE 75 MG TAB PO SCH (21:01)
[2019-02-12] MEDS: ZOLPIDEM TARTRATE 5 MG TAB PO PRN (23:52)
[2019-02-13] VITALS (8 sets, daily range): BP systolic 100–176; BP diastolic 53–80
--- NOTE | 2019-02-13 01:25 | NUR ---
PATIENT IS ASLEEP, HE'S EASY TO AROUSE. NO RESPIRATORY DISTRESS OBSERVED, HE DENIES PAIN TO THE LEFT LEG. CALL LIGHT AND URINAL WITHIN EASY REACH.
[2019-02-13] MEDS: CEFEPIME 2 GM/NS 0.9% 100 ML 100 ML IV SCH ×2 (05:20→19:00)
[2019-02-13] MEDS: VANCOMYCIN 1GM/NS 250 ML 250 ML IV SCH ×2 (06:49→17:04)
[2019-02-13] MEDS: FAMOTIDINE 20 MG TAB PO SCH ×2 (07:30→17:04)
--- NOTE | 2019-02-13 07:40 | NUR ---
The pt is in bed awake and alert t rounds and denies pain or discomfort currently. Bed rails are elevated and side rails are up times two.
[2019-02-13] MEDS: APIXABAN 5 MG TABLET PO SCH ×2 (08:56→17:04)
[2019-02-13] MEDS: LAMOTRIGINE 100 MG TAB PO SCH (08:56)
--- NOTE | 2019-02-13 09:42 | NUR ---
Spoke to Kenzie Hale with [facility]. States pt was denied by insurance. P2P was done by Dr. Erickson and denial was upheld. Insurance stating that they would approve home IV abx or SNF. CM will contact MD for orders.
--- NOTE | 2019-02-13 12:11 | NUR ---
Spoke with Dr. Munguia and received SNF eval order. CM spoke to pt at bedside. He states he wants to go to a facility in [place], close to his family. Choice signed for [facility] and placed in chart. Copy to pt. Referral was faxed. Sav, criminal justice program director at [facility] was informed of referral. IMM letter delivered and explained to pt. He verbalized understanding. Signed copy placed in chart. Copy to pt. Discharge Disposition: [facility] [address] [place] [address] - phone [phone] - fax
--- NOTE | 2019-02-13 20:39 | NUR ---
The patient is laying in bed with HOB elevated. Denies any pain/discomfort at this time. Right PICC line is patent and flushes easily when arm is lift up above the head. Tele box in place and batteries were replaced. Pulses on bilateral legs are intact, and patient sates he is able to feel on bilateral leg. He has discolorations on his right hip down groin and lateral side of right leg from stent done on . Discoloration seems to be healing appropriately. Patient has a family member at bedside. Bed is low, wheels are locked and call light is within reach.
[2019-02-13] MEDS: ASPIRIN 81 MG CHEW TAB PO SCH (20:50)
[2019-02-13] MEDS: CLOPIDOGREL BISULFATE 75 MG TAB PO SCH (20:50)
[2019-02-13] MEDS: PRAVASTATIN 20 MG TAB PO SCH (20:50)
[2019-02-13] MEDS: ARIPIPRAZOLE 20 MG TAB PO SCH (20:50)
[2019-02-13] MEDS: ZOLPIDEM TARTRATE 5 MG TAB PO PRN (20:53)
[2019-02-14] VITALS: BP 119/78
[2019-02-14 04:00] VITALS: BP 119/84
[2019-02-14] MEDS: VANCOMYCIN 1GM/NS 250 ML 250 ML IV SCH (04:42)
[2019-02-14] MEDS: CEFEPIME 2 GM/NS 0.9% 100 ML 100 ML IV SCH (06:19)
[2019-02-14] MEDS: APIXABAN 5 MG TABLET PO SCH ×2 (07:46→16:56)
[2019-02-14] MEDS: FAMOTIDINE 20 MG TAB PO SCH ×2 (07:46→16:56)
[2019-02-14] MEDS: LAMOTRIGINE 100 MG TAB PO SCH (07:46)
--- NOTE | 2019-02-14 07:46 | NUR ---
The pt. called to report pain 5/10 in the left ankle and foot area and was medicated for same. The PICC line was flushed and both port are functional.
[2019-02-14 08:31] VITALS: BP 116/67
[2019-02-14 09:00] VITALS: BP 116/67
[2019-02-14 11:29] VITALS: BP 109/69
--- NOTE | 2019-02-14 14:35 | NUR ---
PT ACCEPTED TO [address] [place] CALL REPORT TO [phone], PT GOING TO [address]NSON, RTF COMPLETED AND COPY PROVIDED TO NURSE WITH PASRR AND A COPY FILED IN CHART.
[2019-02-14 16:36] VITALS: BP 122/64
--- NOTE | 2019-02-14 17:30 | NUR ---
The pt's PICC line was flushed and capped. The pt. was transferred to [facility] via ambulance and is in stable condition.
--- NOTE | 2019-03-14 19:55 | Discharge Summary ---
DISCHARGE DIAGNOSES: 1. Peripheral arterial disease with critical limb ischemia of the left lower extremity, status post thrombectomy and stent placement. 2. Cellulitis of the left lower extremity. DISCHARGE CONDITION: Stable. DISPOSITION: The patient was discharged to rehab facility. DISCHARGE MEDICATIONS: Please see MAR. HOSPITAL COURSE: Mr. Odell was admitted with acute limb ischemia of the left lower extremity. He underwent thrombectomy and angioplasty and stent placement. His postoperative course was complicated with severe swelling and cellulitis of the left leg. Infectious Disease consulted. The patient required intravenous antibiotics. He was transferred to rehab facility for the same. MD ANJELICA Bradley/MODL /[id number]
== END 2019-02-14 17:29 | DRG 271 ==
LOC: ER 09:17 → UNDOADMIN 10:13 → ERHOLD 10:13 → CATH LAB 12:35 → ICU 16:10 → MED/SURG2 02-04 19:56
PROVIDERS: ADMIT Internal Medicine Interventional Cardiology; ATTEND Internal Medicine Interventional Cardiology
PROC: 04CN3ZZ Extirpation of Matter from Left Popliteal Artery, Percutaneous Approach (ICD-10-PCS; 2019-01-30)
PROC: B4101ZZ Fluoroscopy of Abdominal Aorta using Low Osmolar Contrast (ICD-10-PCS; 2019-01-30)
PROC: B41G1ZZ Fluoroscopy of Left Lower Extremity Arteries using Low Osmolar Contrast (ICD-10-PCS; 2019-01-30)
PROC: 04CL3ZZ Extirpation of Matter from Left Femoral Artery, Percutaneous Approach (ICD-10-PCS; 2019-02-01)
PROC: 047N3Z1 Dilation of Left Popliteal Artery using Drug-Coated Balloon, Percutaneous Approach (ICD-10-PCS; 2019-02-01)
PROC: 047S3Z1 Dilation of Left Posterior Tibial Artery using Drug-Coated Balloon, Percutaneous Approach (ICD-10-PCS; 2019-02-01)
PROC: 3E05317 Introduction of Other Thrombolytic into Peripheral Artery, Percutaneous Approach (ICD-10-PCS; 2019-02-01)
PROC: 047N341 Dilation of Left Popliteal Artery with Drug-eluting Intraluminal Device, using Drug-Coated Balloon, Percutaneous Approach (ICD-10-PCS; principal; 2019-02-02)
PROC: 047 Lower Arteries, Dilation (ICD-10-PCS; 2019-02-02)
PROC: 04CN3ZZ Extirpation of Matter from Left Popliteal Artery, Percutaneous Approach (ICD-10-PCS; 2019-02-02)
PROC: 3E05317 Introduction of Other Thrombolytic into Peripheral Artery, Percutaneous Approach (ICD-10-PCS; 2019-02-02)
PROC: B41G1ZZ Fluoroscopy of Left Lower Extremity Arteries using Low Osmolar Contrast (ICD-10-PCS; 2019-02-02)
PROC: 02HV33Z Insertion of Infusion Device into Superior Vena Cava, Percutaneous Approach (ICD-10-PCS; 2019-02-10)
DX: I75.022 Atheroembolism of left lower extremity (principal); I70.262 Atherosclerosis of native arteries of extremities with gangrene, left leg; L03.116 Cellulitis of left lower limb; I47.2 Ventricular tachycardia; E87.5 Hyperkalemia; Z98.890 Other specified postprocedural states; I99.8 Other disorder of circulatory system; E78.5 Hyperlipidemia, unspecified; R50.9 Fever, unspecified
CPT/HCPCS: 36247; 36415; 36569; 37211; 37226; 37228; 37230; 71045; 75625; 75710; 80048; 80053; 80061; 80202; 81001; 82270; 82550; 82553; 83605; 83735; 84484; 85025; 85610; 85730; 86850; 86900; 86920; 87040; 93005; 93971; 96367; 97139; 99284; C1725; C1766; C1769; C1874; C1887; C2623; J0153; J0690; J1170; J1644; J1940; J2001; J2250; J2270; J2997; J3010; J3370; J7030; J7050; P9016; Q9967

== ENCOUNTER → 2019-06-28 | Outpatient (CLI) | payer MEDICARE ==
[~2019-06-28] MED LIST: ABILIFY10 MG PO; ASPIRIN81 MG PO; IOPAMIDOL 370 MG/ML 200 ML INFUS..BTL INJ ONE; PRAVASTATIN SOD20 MG PO; SODIUM CHLORIDE 0.9% 100 ML ONE; SODIUM CHLORIDE 0.9% 500ML 500 ML ONE; SODIUM CHLORIDE 0.9% 50ML 0 ML ONE; eliquis PO
[2019-06-28 08:32] LABS: CREATININE, SERUM 1.28 mg/dL (0.72-1.25)
--- NOTE | 2019-06-28 11:25 | Diagnostic Imaging Report ---
CT,CTA Abdomen and pelvis, with runoff. History: Peripheral vascular disease. Comparison: <None available>. Technique: Multidetector scanning of the abdomen and pelvis and bilateral lower extremities was performed from the level of the lung bases to the feet, after intravenous administration of contrast. Coronal and sagittal multiplanar, MIP, and 3-D volume-rendering reformations were obtained. Discussion: LUNG BASES: No visualized abnormalities. ABDOMEN: Cholecystectomy clips are present. The liver, biliary tree, spleen, pancreas, adrenal glands, and kidneys are normal. Evaluation of bowel is limited without oral contrast. There is no bowel dilatation. Multiple diverticuli are present within the sigmoid colon without evidence of adjacent inflammation. There is no evidence of adenopathy or free fluid. PELVIS: The bladder, prostate, and seminal vesicles are normal in appearance. There is no evidence of free fluid or adenopathy. BONES AND SOFT TISSUES: Degenerative changes are present throughout the lumbar spine without evidence of lytic or sclerotic lesion. Vessels - Abdominal aorta: No evidence of aneurysm or stenosis. SMA, celiac trunk, single bilateral renal arteries, and JOSE are patent. Pelvis vessels: Bilateral common, external, and internal iliac arteries are patent. There is dilatation of the right common artery which measures up to 2.4 cm. Left common iliac artery is also dilated measuring up to 1.5 cm. Origin of the left internal iliac artery is dilated measuring 1.3 cm. External iliac arteries are within normal limits. Right lower extremity: Right common femoral, profundus femoral, superficial femoral, and popliteal arteries are patent. There is enlargement of the right popliteal artery which measures up to 1.6 cm proximally. There is no contrast opacification of the popliteal artery at the level of the knee joint and below. The trifurcation vessels do not fill. Left lower extremity: Left common femoral, profundus femoral, proximal superficial femoral arteries are patent. There is occlusion at the distal superficial femoral artery. Stents are present extending from the distal SFA throughout the popliteal and into the tibioperoneal trunk, which are occluded. A stent is also noted within the proximal posterior tibial artery which is occluded. There is reconstitution of the midportion of the anterior tibial and renal arteries via collateral vessels. IMPRESSION: 1. Occlusion of the distal left SFA and popliteal artery stents. Some reconstitution of distal vessels is noted on the left. 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 No reconstitution seen on the right. 3. Bilateral common iliac artery aneurysms without evidence of stenosis. 4. Sigmoid diverticulosis without evidence of diverticulitis. Signed by: Aurelio Clark on 06/28/2019 11:21 AM
== END ==
LOC: CT 07:54
PROVIDERS: ATTEND Internal Medicine Interventional Cardiology
DX: I73.9 Peripheral vascular disease, unspecified (principal)
CPT/HCPCS: 36415; 75635; 82565; 84520; 96360; J7040; J7050; Q9967